=== PATIENT | female | born 1965 | race Caucasian/White ===

== ENCOUNTER 2023-02-17 09:02 | Outpatient (OUT) | payer OTHER, SELFPAY ==
[2023-02-17 10:13] LABS: Basophils Percent Auto 0.3 % (0.2-2.0); Eosinophils Absolute Auto 0.1 10^3/uL (0.0-0.7); Hematocrit 41.1 % (36.0-48.0); Hemoglobin 13.8 g/dL (12.0-16.0); Immature Granulocytes Abs Auto 0.02 10^3/uL (0.00-0.03); Immature Granulocytes Pct Auto 0.3 % (0.0-0.5); Lymphocytes Absolute Auto 1.6 10^3/uL (1.2-3.8); Lymphocytes Percent Auto 27.6 % (20.5-60.0); Mean Corpuscular HGB Conc 33.6 g/dL (29.9-35.2); Mean Corpuscular Hemoglobin 32.6 pg (26.7-34.0); Mean Corpuscular Volume 97.2 fL (81.0-99.0); Mean Platelet Volume 9.5 fL (9.5-13.5); Monocytes Absolute Auto 0.5 10^3/uL (0.3-0.8); Monocytes Percent Auto 8.4 % (1.7-12.0); Neutrophils Absolute Auto 3.6 10^3/uL (1.4-6.5); Neutrophils Percent Auto 61.4 % (43.0-75.0); Platelet Count 236 10^3/uL (150-450); Red Blood Count 4.23 10^6/uL (4.20-5.40); Red Cell Distribution Width 11.8 % (11.0-15.0); White Blood Count 5.9 10^3/uL (4.0-11.0)
[2023-02-17 12:05] LABS: Alanine Aminotransferase 28 U/L (14-59); Albumin Globulin Ratio 1.4; Albumin Level 4.3 g/dL (3.4-5.0); Alkaline Phosphatase 60 U/L (46-116); Anion Gap 11.5; Aspartate Amino Transferase 21 U/L (15-37); BUN Creatinine Ratio 32.4; Bilirubin Total 0.3 mg/dL (0.2-1.0); Calcium 9.3 mg/dL (8.5-10.1); Carbon Dioxide 30.2 mmol/L (21.0-32.0); Chloride 106 mmol/L (98-107); Chol HDL Ratio 3.1; Cholesterol 258 mg/dL (<=200); Estimated GFR (African America >60 (>=60); Estimated GFR (Non-African Ame >60 (>=60); Free T3 2.94 pg/mL (2.18-3.98); Glucose 114 mg/dL (74-106); HDL Cholesterol 84 mg/dL (40-60); Potassium 3.7 mmol/L (3.5-5.1); Sodium 144 mmol/L (136-145); Thyroid Stimulating Hormone 1.262 uIU/mL (0.358-3.740); Total Protein 7.3 g/dL (6.4-8.2); Triglycerides 87 mg/dL (<=150); VLDL CHOLESTEROL 17.4 mg/dL
[2023-02-17 13:45] LABS: Estimated Average Glucose 117 mg/dL; Glycohemoglobin A1C 5.7 % (4.5-6.2)
== END 2023-02-17 09:03 | disposition home or self-care (01) ==
LOC: LAB 09:05
PROVIDERS: PCP Family Medicine; Visit Provider Family Medicine
DX: Z00.00 Encounter for general adult medical examination without abnormal findings (principal)
CPT/HCPCS: 36415; 80053; 80061; 83036; 84436; 84443; 84481; 85025

== ENCOUNTER 2023-04-29 16:01 | Outpatient (OUT) | payer OTHER, SELFPAY ==
--- NOTE | 2023-04-29 16:05 | MM_ITS ---
Patient: STEPHON LOWE Exam Date: 04/29/2023 : 1965 Gender:F Ordering : DR Carlos Alberto lFood . Admission #: [id number] Family : Order #: [id number] CLICK HERE TO VIEW EXAM RADIOLOGY REPORT PROCEDURE: MM TOMOSYNTHESIS SCREENING BI COMPARISON: MG MAMM SCREEN 3D LUNA CAD, 03/11/2022. MG MAMM SCREEN LUNA W CAD, 03/21/2019. MG MAMM SCREEN LUNA W CAD, 03/01/2018. MG MAMM LUNA SCRN W CAD DIG, 05/16/2013. INDICATIONS: Z12.31 Calculator Name NCI Breast Cancer Risk Assessment Tool 5 Year Breast Cancer Risk 1.30% Lifetime Breast Cancer Risk 8.00% Personal Breast Cancer No Personal Ovarian Cancer No Treatments None Family Cancers Grandmother-paternal with breast cancer at age 60; Grandmother-maternal with bone cancer at age 65; Grandfather-paternal with lung cancer at age 55. LOCATION: [facility] BREAST COMPOSITION: Extremely dense, which lowers the sensitivity of mammography. FINDINGS: DIAGNOSTIC CATEGORY 2--BENIGN FINDING: RIGHT BREAST: No significant suspicious finding. No significant change has occurred. LEFT BREAST: No significant suspicious finding. Stable, chronic benign appearing lymph node within lateral lower-outer quadrant. No significant change has occurred. RECOMMENDATIONS: ROUTINE MAMMOGRAM AND CLINICAL EVALUATION IN 12 MONTHS. PLEASE NOTE: A NORMAL MAMMOGRAM DOES NOT EXCLUDE THE POSSIBILITY OF BREAST CANCER. A CLINICALLY SUSPICIOUS PALPABLE LUMP SHOULD BE BIOPSIED. Dictated by: Jameel Alfaro M.D. on 04/30/2023 at 12:01 Approved by: Jameel Alfaro M.D. on 04/30/2023 at 12:08
== END 2023-04-29 16:02 | disposition home or self-care (01) ==
LOC: MAMMO 16:02
PROVIDERS: PCP Family Medicine; Visit Provider Family Medicine
DX: Z12.31 Encounter for screening mammogram for malignant neoplasm of breast (principal); Z80.3 Family history of malignant neoplasm of breast; Z80.1 Family history of malignant neoplasm of trachea, bronchus and lung; Z80.8 Family history of malignant neoplasm of other organs or systems
CPT/HCPCS: 77063; 77067

== ENCOUNTER 2024-04-14 09:03 | Outpatient (OUT) | payer OTHER, SELFPAY ==
[2024-04-14 09:29] LABS: Basophils Percent Auto 0.3 % (0.2-2.0); Eosinophils Absolute Auto 0.2 10^3/uL (0.0-0.7); Eosinophils Percent Auto 3.1 % (0.9-7.0); Hematocrit 40.2 % (36.0-48.0); Hemoglobin 13.3 g/dL (12.0-16.0); Immature Granulocytes Abs Auto 0.01 10^3/uL (0.00-0.03); Immature Granulocytes Pct Auto 0.2 % (0.0-0.5); Lymphocytes Absolute Auto 2.2 10^3/uL (1.2-3.8); Lymphocytes Percent Auto 37.7 % (20.5-60.0); Mean Corpuscular HGB Conc 33.1 g/dL (29.9-35.2); Mean Corpuscular Hemoglobin 32.4 pg (26.7-34.0); Mean Platelet Volume 9.2 fL (9.5-13.5); Monocytes Absolute Auto 0.5 10^3/uL (0.3-0.8); Monocytes Percent Auto 7.8 % (1.7-12.0); Neutrophils Absolute Auto 2.9 10^3/uL (1.4-6.5); Neutrophils Percent Auto 50.9 % (43.0-75.0); Platelet Count 208 10^3/uL (150-450); Red Cell Distribution Width 11.9 % (11.0-15.0); White Blood Count 5.8 10^3/uL (4.0-11.0)
[2024-04-14 09:36] LABS: Estimated Average Glucose 114 mg/dL; Glycohemoglobin A1C 5.6 % (4.5-6.2)
[2024-04-14 10:39] LABS: Alanine Aminotransferase 22 U/L (14-59); Albumin Globulin Ratio 1.6; Albumin Level 4.1 g/dL (3.4-5.0); Alkaline Phosphatase 58 U/L (46-116); Anion Gap 12.2; Aspartate Amino Transferase 16 U/L (15-37); BUN Creatinine Ratio 30.7; Bilirubin Total 0.4 mg/dL (0.2-1.0); Calcium 9.1 mg/dL (8.5-10.1); Carbon Dioxide 30.8 mmol/L (21.0-32.0); Chloride 105 mmol/L (98-107); Chol HDL Ratio 3.2; Cholesterol 278 mg/dL (<=200); Estimated GFR (African America >60 (>=60); Estimated GFR (Non-African Ame >60 (>=60); Free T3 2.87 pg/mL (2.18-3.98); Globulin 2.6 g/dL; Glucose 102 mg/dL (74-106); HDL Cholesterol 88 mg/dL (40-60); Sodium 144 mmol/L (136-145); Thyroid Stimulating Hormone 1.503 uIU/mL (0.358-3.740); Total Protein 6.7 g/dL (6.4-8.2); Triglycerides 61 mg/dL (<=150); VLDL CHOLESTEROL 12.2 mg/dL
[2024-04-15 04:10] LABS: Insulin 4.4 uIU/mL (2.6-24.9)
[2024-04-18 14:10] LABS: Age Gdln ACOG Testing Note (.); HPV Aptima Negative (Negative); IGP, Aptima HPV, rfx 16/18,45 Note (.)
== END 2024-04-14 09:04 | disposition home or self-care (01) ==
LOC: LAB 09:11
PROVIDERS: PCP Family Medicine; Visit Provider Nurse Practitioner Family
DX: Z00.00 Encounter for general adult medical examination without abnormal findings (principal)
CPT/HCPCS: 36415; 80053; 80061; 83036; 83525; 84436; 84443; 84481; 85025; 87624; 88175

== ENCOUNTER 2024-05-20 16:24 | Emergency (ER) | payer OTHER, SELFPAY ==
[2024-05-20 16:31] VITALS: BP 161/106; PULSE 95; TEMP 36.7; O2SAT 98; BMI 22.1
--- NOTE | 2024-05-20 16:42 | ED_ITS ---
HPI - Skin/Abscess/Foreign Bdy General Chief complaint: Skin/Abscess/Foreign Body Stated complaint: bee sting in mouth, throat/swallowing diff Time Seen by Provider: 05/20/24 16:39 Source: patient Mode of arrival: walk-in Limitations: no limitations History of Present Illness HPI narrative: Patient is a 59-year-old female who presents to the emergency department for evaluation of discomfort in the throat after a suspected accidental swallowing of a bead that was indican she was drinking from. She states she believes she was stung in the throat. She has no history of bee sting allergy. She states she noted multiple bees around the area. She denies any diffuse hives or itching. She reports a raspy feeling in her voice and discomfort in the back of the throat. No medications taken prior to arrival. No lip swelling or tongue swelling. Related Data Home Medications ?Medication ?Instructions ?Recorded ?Confirmed simvastatin 20 mg tablet 20 mg PO DAILY 05/20/24 05/20/24 Previous Rx's ?Medication ?Instructions ?Recorded famotidine 20 mg tablet (Pepcid) 20 mg PO BID #10 tabs 05/20/24 hydroxyzine HCl 25 mg tablet 25 mg PO Q6H PRN itching #20 tabs 05/20/24 methylprednisolone 4 mg tablets in See Rx Instructions .Route 05/20/24 a dose pack (Medrol (Sam)) .COMPLEX #21 ea Allergies Allergy/AdvReac Type Severity Reaction Status Date / Time No Known Drug Allergies Allergy Verified 05/20/24 16:35 Review of Systems ROS Constitutional Denies: fever or chills Ears, nose, mouth, and throat Reports: throat pain; Denies: swelling of li ps/tongue Respiratory Denies: shortness of breath Gastrointestinal Denies: nausea or vomiting Integumentary/Breast Denies: rash Neurological Denies: numbness in extremities or weakness in extremities Allergic/Immunologic Reports: throat swelling; Denies: hives, tongue swelling or facial swelling [facility] Medical History (Updated 05/20/24 @ 19:12 by Leonila Singer RN) High cholesterol ?E78.00 - Pure hypercholesterolemia, unspecified (ICD-10) Social History Little interest or pleasure in doing things: not at all Feeling down, depressed, or hopeless: not at all Exam Narrative Exam Narrative: Gen.: Awake, alert, in no distress Head: Normocephalic, atraumatic ENT: Moist mucous membranes, airway widely open and patent with hoarse voice. No tongue swelling or lip swelling noted. Respiratory: No respiratory distress, lungs clear bilaterally; no wheezing or rhonchi Extremities: Moves extremities equally Psych: Normal mood and affect Neuro: No focal neuro deficit Skin: Warm, dry, intact Constitutional Vital Signs, click to edit/add: Last Vital Signs Temp 98.1 F 05/20/24 16:31 Pulse 95 H 05/20/24 17:46 Resp 18 05/20/24 17:46 BP 150/80 H 05/20/24 17:46 Pulse Ox 99 05/20/24 17:46 O2 Del Method Room Air 05/20/24 17:24 Course Vital Signs Vital signs: Vital Signs Temperature 98.1 F 05/20/24 16:31 Pulse Rate 95 H 05/20/24 16:31 Respiratory Rate 20 05/20/24 16:31 Blood Pressure 161/106 H 05/20/24 16:31 Pulse Oximetry 98 05/20/24 16:31 Oxygen Delivery Method Room Air 05/20/24 16:31 Temperature 98.1 F 05/20/24 16:31 Pulse Rate 95 H 05/20/24 17:46 Respiratory Rate 18 05/20/24 17:46 Blood Pressure 150/80 H 05/20/24 17:46 Pulse Oximetry 99 05/20/24 17:46 Oxygen Delivery Method Room Air 05/20/24 17:24 MDM - Skin/Abscess/Foreign Bdy MDM Narrative Medical decision making narrative: Patient was treated with IV fluids, albuterol breathing treatment, Solu-Medrol, Benadryl, Pepcid. She had no development of difficulty breathing, lip swelling, tongue swelling or diffuse urticaria. No evidence of anaphylaxis in the ER. She continues to have a hoarse and raspy voice and she was given additional GI cocktail. After the GI cocktail, she vomited but did not feel nauseous and states she felt like the bee was coming up . She was sent for CT of the soft tissue of the throat to rule out obstruction or obvious foreign body. CT shows soft tissue edema throughout the airway, given the patient's symptoms and her continued hoarse and raspy voice, we are concerned for possible development of worsening swelling overnight so it was recommended to the patient that we keep her in the hospital overnight for IV antibiotics and anti- histamines. Patient admitted to the hospitalist for observation. Stable at time of admission. SHARED APC VISIT, PHYSICIAN ATTESTATION: [id number] I performed a substantive part of the MDM during the patient?s E/M visit. I personally evaluated and examined the patient. I personally made or approved the documented management plan and acknowledge its risk of complications. 1926: At time of admission, patient has decided that she does not wish to be admitted. She understands the risks of and disability by leaving the hospital AGAINST MEDICAL ADVICE. She will be started on prescription steroids and antihistamines for home. She was strongly encouraged to return to the emergency department immediately if her symptoms change or worsen. Follow-up closely with PCP. Medical Records Attestation: I reviewed the patient's medical records. Imaging Data CT soft tissue neck: Attestation: I have reviewed the pertinent imaging results. Radiologist's impression: ITS Impressions Soft Tissue Neck CT 05/20/24 18:15 IMPRESSION: 1. There is soft tissue swelling and edema throughout the airway. There is mucosal edema along the oropharynx and hypopharynx. There is some edema throughout the parapharyngeal space and retropharyngeal space. 2. There is no significant airway compromise at this time. 3. There is no significant swelling of the epiglottis. Vocal cords are symmetric. 4. No loculated fluid collection appreciated. No evidence of an abscess. No soft tissue gas. Electronically authenticated by: ANSHU GOMES Date: 05/20/2024 18:55 Discharge Plan Discharge Chief Complaint: Skin/Abscess/Foreign Body Clinical Impression: Insect sting, Throat swelling Time of Disposition Decision: 19:01 Condition: Good Prescriptions / Home Meds: New hydroxyzine HCl 25 mg tablet 25 mg PO Q6H PRN (Reason: itching) Qty: 20 0RF methylprednisolone [Medrol (Sam)] 4 mg tablets,dose pack See Rx Instructions .ROUTE .COMPLEX Qty: 21 0RF Rx Instructions: Taper as directed famotidine [Pepcid] 20 mg tablet 20 mg PO BID Qty: 10 0RF No Action simvastatin 20 mg tablet 20 mg PO DAILY Print Language: Fijian Instructions: Insect Bite or Sting (ED) Referrals: Carlos Alberto Flood MD [Primary Care Provider] - 1 week
[2024-05-20] MEDS: FAMOTIDINE/PF 20 MG/2 ML VIAL IV (17:05)
[2024-05-20] MEDS: DIPHENHYDRAMINE HCL 50 MG/ML VIAL 25 MG IV (17:05)
[2024-05-20] MEDS: METHYLPREDNISOLONE SOD SUCC PF 125 MG/2 ML VIAL IVP (17:05)
[2024-05-20] MEDS: 0.9 % SODIUM CHLORIDE 1,000 ML 999 ML IV (17:06)
--- NOTE | 2024-05-20 17:20 | PC.NURSE ---
pt took a drink and swallowed bee by accident. pt unsure if bee stung pt throat. pt sounds raspy, feels like lump is in throat. pt denies SOB.
[2024-05-20 17:24] VITALS: PULSE 88; O2SAT 100
[2024-05-20] MEDS: ALBUTEROL SULFATE 2.5 MG/3 ML VIAL NEB IH (17:24)
[2024-05-20 17:46] VITALS: BP 150/80; PULSE 95; O2SAT 99
[2024-05-20] MEDS: lidocaine HCL 15 ML, MAG HYDROX/ALUMINUM HYD/SIMETH 30 ML, HYOSCYAMINE SULFATE 0.25 MG PO (18:04)
--- NOTE | 2024-05-20 18:15 | CT_ITS ---
The [address] [address] Patient Name: STEPHON LOWE MRN: [id number] date: 1965 Sex: F Assigned Patient Location: ER Current Patient Location: Accession/Order Number: [id number] Exam Date: 05/20/2024 18:20 Report Date: 05/20/2024 18:55 At the request of: PRINCE REYNAGA Procedure: CT soft tissue neck wo con CT NECK WITHOUT CONTRAST, 05/20/2024. HISTORY: Throat pain. Swallowed a bee. COMPARISON: None. TECHNIQUE: Noncontrast axial CT images obtained through the neck. Reconstructions obtained in the sagittal and coronal planes. Dose reduction techniques were achieved by using automated exposure control and/or adjustment of mA and/or kV according to patient size and/or use of iterative reconstruction technique. FINDINGS: Visualized posterior fossa contents are unremarkable. Paranasal sinuses appear clear. Middle ear cavities clear. Mastoid air cells clear. Skull base intact. [employer] spaces appear normal. The parotid glands are normal. Submandibular glands normal. The tongue and floor of the mouth are normal. The nasopharynx is normal. There is edema along the oropharynx most prominent on the right side. There is some edema in the parapharyngeal space on the right. There is mucosal edema along the hypopharynx extending into the supraglottic laryngeal region with effacement of the piriform sinuses bilaterally. There is edema in the retropharyngeal space. There is no significant swelling of the epiglottis. No significant airway compromise at this time. Vocal cords are symmetric. There is some edema extending into the soft tissues along the right lobe of the thyroid gland. Trachea appears normal. Visualized portion of the esophagus unremarkable. No lymphadenopathy. No fluid collections. Lung apices are clear. Moderate multilevel degenerative disc disease most prominent at C4-C5 and C5-C6. No suspicious osseous lesions. CT/CT soft tissue neck wo con IMPRESSION: 1. There is soft tissue swelling and edema throughout the airway. There is mucosal edema along the oropharynx and hypopharynx. There is some edema throughout the parapharyngeal space and retropharyngeal space. 2. There is no significant airway compromise at this time. 3. There is no significant swelling of the epiglottis. Vocal cords are symmetric. 4. No loculated fluid collection appreciated. No evidence of an abscess. No soft tissue gas. Electronically authenticated by: ANSHU GOMES Date: 05/20/2024 18:55
== END 2024-05-20 19:37 | disposition left against medical advice (07) ==
PROVIDERS: Emergency Provider Emergency Medicine; PCP Family Medicine
DX: T63.441A Toxic effect of venom of bees, accidental (unintentional), initial encounter (principal); R22.0 Localized swelling, mass and lump, head
CPT/HCPCS: 70490; 94640; 96374; 96375; 99285; J1200; J2919

== ENCOUNTER 2025-04-27 06:35 | Outpatient (OUT) | payer OTHER, SELFPAY ==
--- OUTSIDE RECORDS SUMMARY | 2025-03-22 06:30 | XMS_ITS | Continuity of Care Document ---
Author Organization [facility] Address [address] [place] [address] Phone Care Team Providers Care Differential Specialist Name Role Phone JED Dutton Riddhi Unavailable Unavailable Allergies, Adverse Reactions, Alerts Substance Reaction Status Criticality erythromycin base Active No Informa tion Medications Medication Instructions Dosage Effective Dates (start - stop) Status Comments TIZANIDINE HCL 4 MG TABLET TAKE 1 TABLET BY MOUTH EVERY NIGHT NEEDED - Active PREGABALIN 100 MG CAPSULE TAKE 1 CAPSULE BY MOUTH TWICE A DAY - Active metoprolol succinate ER 25 mg tablet,extended release 24 hr take 2 tablet by oral route every day 50 MG - Active tramadol 50 mg tablet TAKE 1 TABLET BY MOUTH EVERY 8 HOURS NEEDED - Active Prolia 60 mg/mL subcutaneous syringe PROLIA 60mg -Today - Active prednisone 5 mg tablet 1-2 tabs daily as needed, as directed - Active Vitamin D3 2,000 unit capsule take 2 tablet by oral route every day 2 tablet - Active Bioflex 500 mg-50 mg-25 mg-40 mg tablet - Active Pristiq 50 mg tablet,extended release take 1 tablet by oral route every day 50 MG - Active Ambien 5 mg tablet take 1 tablet by ora l route every day at bedtime 5 MG - Active Procedures Procedure Date OFFICE/OUTPATIENT VISIT, EST DEXA BONE DENSITY Patient Not Seen Patient Not Seen OFFICE/OUTPATIENT VISIT, EST Toradol (15mg = 1 Unit) KENALOG 10MG IM OFFICE/OUTPATIENT VISIT, EST COMPREHEN METABOLIC PANEL CBC W/DIFF WBC RBC SED RATE, AUTOMATED CRP NUCLEAR ANTIGEN ANTIBODY CCP ANTIBODY ASSAY OF URINE CREATININE ASSAY OF PROTEIN, URINE URINALYSIS W/ MICRO MAGGIE SCREEN Drug Administration Fee, SQ/IM 25 Prolia (1mg = 1 Unit) Arthrocentesis; Major Joint Or Bursa Wit h U/S KENALOG 10MG IM Arthrocentesis; Major Joint Or Bursa Wit h U/S OFFICE/OUTPATIENT VISIT, EST DRUG TEST PRSMV CHEM ANLYZR Toradol (15mg = 1 Unit) Drug Administration Fee, SQ/IM 24 Prolia (1mg = 1 Unit) OFFICE/OUTPATIENT VISIT, EST COMPREHEN METABOLIC PANEL CBC W/DIFF WBC VITAMIN D 250H KENALOG 10MG IM Toradol (15mg = 1 Unit) OFFICE/OUTPATIENT VISIT, EST Drug Administration Fee, SQ/IM 24 Prolia (1mg = 1 Unit) KENALOG 10MG IM Toradol (15mg = 1 Unit) OFFICE/OUTPATIENT VISIT, EST COMPREHEN METABOLIC PANEL DRUG TEST PRSMV CHEM ANLYZR CBC W/DIFF WBC PHOSPHORUS OFFICE/OUTPATIENT VISIT, EST Drug Administration Fee, SQ/IM Prolia (1mg = 1 Unit) OFFICE/OUTPATIENT VISIT, EST Administration Injections Toradol (15mg = 1 Unit) KENALOG 10MG IM OFFICE/OUTPATIENT VISIT, EST DEXA BONE DENSITY ROUTINE VENIPUNCTURE COMPREHEN METABOLIC PANEL MAGNESIUM URIC ACID PHOSPHORUS CRP FERRITIN FOLIC ACID SERUM IRON FE IRON TIBC VITAMIN B-12 VITAMIN D 250H URINALYSIS W/ MICRO GENERAL HEALTH PANEL OFFICE/OUTPATIENT VISIT, EST X-RAY EXAM OF SPINE LUMBAR AP & LAT X-RAY EXAM OF SPINE CERVICAL, AP & LAT J OFFICE/OUTPATIENT VISIT, EST KENALOG 10MG IM Toradol (15mg = 1 Unit) OFFICE/OUTPATIENT VISIT, EST Arthrocentesis; Major Joint Or Bursa Wit h U/S KENALOG 10MG IM Toradol (15mg = 1 Unit) Arthrocentesis; Major Joint Or Bursa Wit h U/S OFFICE/OUTPATIENT VISIT, EST X-RAY EXAM OF KNEE AP & LAT KENALOG 10MG IM Toradol (15mg = 1 Unit) OFFICE/OUTPATIENT VISIT, EST OFFICE/OUTPATIENT VISIT, EST KENALOG 10MG IM Toradol (15mg = 1 Unit) CBC W/DIFF WBC RBC SED RATE, AUTOMATED CRP COMPREHEN METABOLIC PANEL ROUTINE VENIPUNCTURE Administration Injections KENALOG 10MG IM OFFICE/OUTPATIENT VISIT, EST KENALOG 10MG IM Toradol (15mg = 1 Unit) OFFICE/OUTPATIENT VISIT, EST Hip With Pelvis Unilateral 2 Or 3 Views X-RAY EXAM OF SPINE LUMBAR AP & LAT ROUTINE VENIPUNCTURE CBC W/DIFF WBC COMPREHEN METABOLIC PANEL CRP RBC SED RATE, AUTOMATED Toradol (15mg = 1 Unit) OFFICE/OUTPATIENT VISIT, EST Toradol (15mg = 1 Unit) KENALOG 10MG IM OFFICE/OUTPATIENT VISIT, EST ROUTINE VENIPUNCTURE COMPREHEN METABOLIC PANEL CBC W/DIFF WBC OFFICE/OUTPATIENT VISIT, EST OFFICE/OUTPATIENT VISIT, EST OFFICE/OUTPATIENT VISIT, EST ROUTINE VENIPUNCTURE COMPREHEN METABOLIC PANEL CBC W/DIFF WBC KENALOG 10MG IM OFFICE/OUTPATIENT VISIT, EST OFFICE/OUTPATIENT VISIT, EST OFFICE/OUTPATIENT VISIT, EST OFFICE/OUTPATIENT VISIT, EST Chest, PA And Lateral ROUTINE VENIPUNCTURE CBC W/DIFF WBC RBC SED RATE, AUTOMATED CRP COMPREHEN METABOLIC PANEL TB TEST, CELL IMMUN MEASURE HEP B SURFACE ANTIBODY HBS AG HEPATITIS C ANTIBODY HEP B CORE ANTIBODY, TOTAL IMMUNOFIX E-PHORESIS, SERUM KENALOG 10MG IM OFFICE/OUTPATIENT VISIT, EST OFFICE/OUTPATIENT VISIT, EST OFFICE/OUTPATIENT VISIT, EST ROUTINE VENIPUNCTURE CBC W/DIFF WBC COMPREHEN METABOLIC PANEL VITAMIN D 250H KENALOG 10MG IM Administration Injections KENALOG 10MG IM OFFICE/OUTPATIENT VISIT, EST OFFICE/OUTPATIENT VISIT, EST OFFICE/OUTPATIENT VISIT, EST KENALOG 10MG IM ROUTINE VENIPUNCTURE CBC W/DIFF WBC RBC SED RATE, AUTOMATED CRP COMPREHEN METABOLIC PANEL QUANTITATIVE IMMUNOGLOBULIN IGM 018 CORTISOL BLOOD LEVEL IGG 1, 2, 3 OR 4, EACH OFFICE/OUTPATIENT VISIT, EST GENERAL HEALTH PANEL RBC SED RATE, AUTOMATED CRP T4 FREE VITAMIN D 250H OFFICE/OUTPATIENT VISIT, EST OFFICE/OUTPATIENT VISIT, EST ROUTINE VENIPUNCTURE CORTISOL BLOOD LEVEL OFFICE/OUTPATIENT VISIT, EST KENALOG (10mg/unit) CBC W/DIFF WBC RBC SED RATE, AUTOMATED CRP COMPREHEN METABOLIC PANEL TSH PHOSPHORUS VITAMIN D 250H EBV EA IGG ANGELI ROJAS VIRUS EBV VCA IGM CMV ANTIBODY, IGG SERUM CMV ANTIBODY, IGM OFFICE/OUTPATIENT VISIT, EST X-RAY EXAM OF KNEE AP & LAT X-RAY EXAM OF SPINE LUMBAR AP & LAT Administration Injections KENALOG (10mg/unit) OFFICE/OUTPATIENT VISIT, NEW GENERAL HEALTH PANEL RBC SED RATE, AUTOMATED CRP MAGGIE SCREEN RF LATEX QUALITATIVE NUCLEAR ANTIGEN ANTIBODY MAGGIE TITER Advance Directives Directive Yes / No Effective Date File Name No Information Encounters Encounter Description Practice Location Reason(s) For Visit Diagnoses Date Provider Providers Copied on Encounter OFFICE/OUTPA TIENT VISIT, EST [facility], [address] [place] [address], [id number], tel:[phone] [facility] musculoskeleta l complaints (chief complaint) Inflammatory polyarthropat hyPain in unspecified hipFibromyalg iaAge-related osteoporosis without current pathological fractureOther nursing home (current) drug therapy 5 JED Dutton. [address] [place] [address], [facility], . tel:[phone] Referring Provider: Aaron Dutton, [address] [place] [address], [place], [address] . tel:[phone] [facility], [address] [place] [address], [id number], [place] tel:[phone] [facility] No Information 5 Marielos Walker. [address] [place] [address], [id number], [place]. tel:[phone] [facility], [address] [place] [address], [id number], [place] tel:[phone] [facility] No Information 5 Santos Parada. [address] [place] [address], [id number], [place]. tel:[phone] [facility], [address] [place] [address], [id number], [place] tel:[phone] [facility] No Information 5 JED Dutton. [address] [place] [address], [facility], . tel:[phone] OFFICE/OUTPA TIENT VISIT, EST [facility], [address] [place] [address], [address] [place] [address], tel:[phone] [facility] musculoskeleta l complaints (chief complaint) Inflammatory polyarthropat hyPain in unspecified hipFibromyalg iaAge-related osteoporosis without current pathological fractureOther nursing home (current) drug therapy 5 JED Duttoni. [address] [place] [address], [facility], . tel:[phone] Referring Provider: Aaron Dutton, [address] [place] [address], [id number] . tel:[phone] [facility], [address] [place] [address], [address] [place] [address], tel:[phone] [facility] No Information 5 JED Dutton. [address] [place] [address], [facility], . [phone] OFFICE/OUTPA TIENT VISIT, EST [facility], [address] [place] [address], [address] [place] [address], tel:[phone] [facility] musculoskeleta l complaints (chief complaint) Inflammatory polyarthropat hyPain in unspecified hipFibromyalg iaAge-related osteoporosis without current pathological fractureOther intermodal dispatcher (current) drug therapy 5 JED Dutton. [address] [place] [address], [facility], . tel:[phone] Referring Provider: Aaron Dutton, [address] [place] [address], [address] . tel:[phone] [facility], [address] [place] [address], [address] [place] [address], [place] tel:[phone] [facility] No Information 5 Marielos Walker. [address] [place] [address], [address] [place] [address], [place]. tel:[phone] [facility], [address] [place] [address], [address] [place] [address], [place] tel:[phone] [facility] Age-related osteoporosis without current pathological fracture 5 Marielos Walker. [address] [place] [address], [address] [place] [address], [place]. tel:[phone] Referring Provider: Aaron Dutton, [address] [place] [address], [place], [place], [address] [place] [address] . tel:[phone] OFFICE/OUTPA TIENT VISIT, EST [facility], [address] [place] [address], [address] [place] [address], tel:[phone] [facility] musculoskeleta l complaints (chief complaint) Inflammatory polyarthropat hyFibromyalgi aAge-related osteoporosis without current pathological fractureOther intermodal dispatcher (current) drug therapyPain in unspecified hip 5 Marielos Walker. [address] [place] [address], [address] [place] [address], [place]. tel:[phone] Referring Provider: Aaron Dutton, [address] [place] [address], [place], [address] . tel:[phone] [facility], [address] [place] [address], [address] [place] [address], [place] tel:[phone] [facility] No Information 4 Gabriel Fernandez. [address] [place] [address], [facility], . tel:[phone] OFFICE/OUTPA TIENT VISIT, EST [facility], [address] [place] [address], [address] [place] [address], [place] tel:[phone] [facility] musculoskeleta l complaints (chief complaint) Inflammatory polyarthropat hyFibromyalgi aAge-related osteoporosis without current pathological fractureOther nursing home (current) drug therapy 4 Marielos Walker. [address] [place] [address], [address] [place] [address], [place]. tel:[phone] Referring Provider: Aaron Dutton, [address] [place] [address], [place], [place], [address] [place] [address] . tel:[phone] [facility], [address] [place] [address], [address] [place] [address], tel:[phone] [facility] FibromyalgiaI nflammatory polyarthropat hy 4 Marielos Walker. [address] [place] [address], [address] [place] [address], [place]. tel:[phone] Referring Provider: Aaron Dutton, [address] [place] [address], [place], [place], [address] [place] [address] . tel:[phone] OFFICE/OUTPA TIENT VISIT, EST [facility], [address] [place] [address], [address] [place] [address], [place] tel:[phone] [facility] musculoskeleta l complaints (chief complaint) Inflammatory polyarthropat hyFibromyalgi aAge-related osteoporosis without current pathological fractureOther nursing home (current) drug therapy 4 Marielos Walker. [address] [place] [address], [address] [place] [address], [place]. tel:[phone] Referring Provider: Aaron Dutton, [address] [place] [address], [place], [place], [address] [place] [address] . tel:[phone] [facility], [address] [place] [address], [address] [place] [address], [place] tel:[phone] [facility] Age-related osteoporosis without current pathological fracture 4 Marielos Walker. [address] [place] [address], [address] [place] [address], . tel:[phone] Referring Provider: Aaron Dutton, [address] [place], [address] . tel:[phone] [facility], [address] [place] [address], [address] [place] [address], tel:[phone] [facility] Inflammatory polyarthropat hy 4 Marielos Walker. [address] [place] [address], [address] [place] [address], [place]. tel:[phone] Referring Provider: Aaron Dutton, [address] [place] [address], [place], [address] [place] [address] . tel:[phone] OFFICE/OUTPA TIENT VISIT, EST [facility], [address] [place] [address], [address] [place] [address], tel:[phone] [facility] musculoskeleta l complaints (chief complaint) Inflammatory polyarthropat hyFibromyalgi aAge-related osteoporosis without current pathological fractureOther nursing home (current) drug therapy 4 Marielos Walker. [address] [place] [address], [address] [place] [address], [place]. tel:[phone] Referring Provider: Aaron Dutton, [address] [place] [address], [place], [place], [address] [place] [address] . tel:[phone] OFFICE/OUTPA TIENT VISIT, EST [facility], [address] [place] [address], [address] [place] [address], [place] tel:[phone] [facility] Musculoskeleta l complaints (chief complaint) Inflammatory polyarthropat hyFibromyalgi aAge-related osteoporosis without current pathological fractureOther nursing home (current) drug therapy 3 Marielos Walker. [address] [place] [address], [address] [place] [address], [place]. tel:[phone] Referring Provider: Aaron Dutton, [address] [place] [address], [place], [address] . tel:[phone] [facility], [address] [place] [address], [id number], [place] tel:[phone] [facility] Age-related osteoporosis without current pathological fracture 3 Marielos Walker. [address] [place] [address], [address] [place] [address], . tel:[phone] Referring Provider: Aaron Dutton, [address] [place] [address], [address] . tel:[phone] OFFICE/OUTPA TIENT VISIT, EST [facility], [address] [place] [address], [address] [place] [address], [place] tel:[phone] [facility] Musculoskeleta l complaints (chief complaint) OsteoporosisC ervicalgiaFib romyalgia 3 Marielos Walker. [address] [place] [address], [address] [place] [address], . tel:[phone] Referring Provider: Aaron Dutton, [address] [place] [address], [place], [address] . tel:[phone] [facility], [address] [place] [address], [id number], [place] tel:[phone] [facility] Inflammatory polyarthropat hy 3 Marielos Walker. [address] [place] [address], [address] [place] [address], [place]. tel:[phone] Referring Provider: Carol Villalobos, [address] [address], [place], [address]. tel:[phone] OFFICE/OUTPA TIENT VISIT, EST [facility], [address] [place] [address], [id number], [place] tel:[phone] [facility] musculoskeleta l complaints (chief complaint) Vitamin D deficiency, unspecifiedIn flammatory polyarthropat hyRadiculopat hy, lumbar regionCervica lgiaFibromyal felisha 3 Marielos Walker. [address] [place] [address], [id number], [place]. tel:[phone] Referring Provider: Carol Villalobos, [address], [place], [address]. tel:[phone] [facility], [address] [place] [address], [place], [place], [id number], [place] tel:[phone] [facility] Radiculopathy , cervical region 3 Marielos Walker. [address] [place] [address], [place], [place], [id number], [place]. tel:[phone] OFFICE/OUTPA TIENT VISIT, EST [facility], [address] [place] [address], [id number], [place] tel:[phone] [facility] musculoskeleta l complaints (chief complaint) Vitamin D deficiency, unspecifiedIn flammatory polyarthropat hyFibromyalgi aCervicalgiaR adiculopathy, lumbar region 3 JED Dutton. [address] [place] [address], [id number], [place]. tel:[phone] Referring Provider: Aaron Dutton, [address] [place] [address], [place], [address] . tel:[phone] OFFICE/OUTPA TIENT VISIT, EST [facility], [address] [place] [address], [id number], [place] tel:[phone] [facility] musculoskeleta l complaints (chief complaint) Vitamin D deficiency, unspecifiedIn flammatory polyarthropat hyFibromyalgi a Oct- 3 JED Dutton. [address] [place] [address], [address], [place]. tel:[phone] Referring Provider: Aaron Dutton, [address] [place] [address], [address] . tel:[phone] OFFICE/OUTPA TIENT VISIT, EST [facility], [address] [place] [address], [id number], [place] tel:[phone] [facility] musculoskeleta l complaints (chief complaint) Vitamin D deficiency, unspecifiedIn flammatory polyarthropat hyPain in left hipPain in rt kneeFibromyal felisha 3 Marielos Walker. [address], [place], [id number], [place]. tel:[phone] Referring Provider: Carol Villalobos, [facility] [address], [place], [address]. tel:[phone] OFFICE/OUTPA TIENT VISIT, EST [facility], [address] [place] [address], [id number], [place] tel:[phone] [facility] musculoskeleta l complaints (chief complaint) Vitamin D deficiency, unspecifiedIn flammatory polyarthropat hyFibromyalgi aPain in rt kneePain in left hip 2 Marielos Walker. [address], [place], [id number], [place]. tel:[phone] Referring Provider: Carol Villalobos, [facility] [address], [place], [address]. tel:[phone] OFFICE/OUTPA TIENT VISIT, EST [facility], [address] [place] [address], [id number], [place] tel:[phone] [facility] musculoskeleta l complaints (chief complaint) FibromyalgiaI nflammatory polyarthropat hyVitamin D deficiency, unspecified 2 Marielos Walker. [address], [place], [id number], [place]. tel:[phone] Referring Provider: Carol Villalobos, [facility] [address], [place], [address]. tel:[phone] OFFICE/OUTPA TIENT VISIT, EST [facility], [address] [place] [address], [id number], [place] tel:[phone] [facility] musculoskeleta l complaints (chief complaint) Arthropathy, unspecifiedFi bromyalgia 2 JED Dutton. [address] [place] [address], [id number], [place]. tel:[phone] Referring Provider: Aaron Dutton, [address] [place] [address], [address] . tel:[phone] [facility], [address] [place] [address], [id number], [place] tel:[phone] [facility] Inflammatory polyarthropat hy 1 aMrielos Walker. [address] [place] [address], [id number], [place]. tel:[phone] Referring Provider: Carol Villalobos, [address] [place] [address], [place], [address]. tel:[phone] OFFICE/OUTPA TIENT VISIT, EST [facility], [address] [place] [address], [id number], [place] tel:[phone] [facility] musculoskeleta l complaints (chief complaint) Arthropathy, unspecifiedFi bromyalgia 1 Marielos Walker. [address] [place] [address], [id number], [place]. tel:[phone] Referring Provider: Carol Villalobos, [address] [place] [address], [place], [address]. tel:[phone] OFFICE/OUTPA TIENT VISIT, EST [facility], [address] [place] [address], [id number], [place] tel:[phone] [facility] musculoskeleta l complaints (chief complaint) Arthropathy, unspecifiedFi bromyalgia 0 1 Marielos Walker. [address] [place] [id number], [place]. tel:[phone] Referring Provider: Carol Villalobos, [address] [place] [address], [place], [address]. tel:[phone] OFFICE/OUTPA TIENT VISIT, EST [facility], [address] [place] [address], [id number], [place] tel:[phone] [facility] musculoskeleta l complaints (chief complaint) Inflammatory polyarthropat hyFibromyalgi a 0 Marielos Walker. [address], [place], [id number], [place]. tel:[phone] Referring Provider: Carol Villalobos, [facility], [place], [address]. tel:[phone] OFFICE/OUTPA TIENT VISIT, EST [facility], [address] [place] [address], [address] [place] [address], [place] tel:[phone] [facility] musculoskeleta l complaints (chief complaint) FibromyalgiaI nflammatory polyarthropat hy 0 Marielos Walker. [address], [place], [address] [place] [address], [place]. tel:[phone] Referring Provider: Carol Villalobos, [address], [place], [address]. tel:[phone] OFFICE/OUTPA TIENT VISIT, EST [facility], [address] [place] [address], [id number], [place] tel:[phone] [facility] Musculoskeleta l complaints (chief complaint) FibromyalgiaI nflammatory polyarthropat hy 0 Marielos Walker. [address], [place], [address] [place] [address], [place]. tel:[phone] OFFICE/OUTPA TIENT VISIT, EST [facility], [address] [place] [address], [id number], [place] tel:[phone] [facility] No Information 0 Marielos Walker. [address], [place], [id number], [place]. tel:[phone] OFFICE/OUTPA TIENT VISIT, EST [facility], [address] [place] [address], [id number], [place] tel:[phone] [facility] musculoskeleta l complaints (chief complaint) Inflammatory polyarthropat hyFibromyalgi aOther fatigueOther intermodal dispatcher (current) drug therapy 0 Marielos Walker. [address] [place] [address], [id number], [place]. tel:[phone] Referring Provider: Carol Villalobos, [address] [facility] [address], [place], [address]. tel:[phone] OFFICE/OUTPA TIENT VISIT, EST [facility], [address] [place] [address], [id number], [place] tel:[phone] [facility] musculoskeleta l complaints (chief complaint) Inflammatory polyarthropat hyFibromyalgi aOther fatigueOther nursing home (current) drug therapy 0 JED Dutton. [address] [place] [address], [facility], . tel:[phone] Referring Provider: Aaron Dutton, [address] [place] [address], [id number] . tel:[phone] [id number] OFFICE/OUTPA TIENT VISIT, EST [facility], [address] [place] [address], [id number], [place] tel:[phone] [facility] musculoskeleta l complaints (chief complaint) Inflammatory polyarthropat hyFibromyalgi aOther fatigueOther intermodal dispatcher (current) drug therapy 9 JED Dutton. [address] [place] [address], [facility], . tel:[phone] Referring Provider: Aaron Dutton, [address] [place] [address], [id number] . tel:[phone] OFFICE/OUTPA TIENT VISIT, EST [facility], [address] [place] [address], [id number], [place] tel:[phone] [facility] musculoskeleta l complaints (chief complaint) Inflammatory polyarthropat hyFibromyalgi aOther fatigueOther nursing home (current) drug therapy 9 Marielos Walker. [address] [facility], [place], [place], [id number], [place]. tel:[phone] Referring Provider: Carol Villalobos, [facility] [address], [place], [address]. tel:[phone] OFFICE/OUTPA TIENT VISIT, EST [facility], [address] [place], [place], [id number], [place] tel:[phone] [facility] musculoskeleta l complaints (chief complaint) FibromyalgiaI nflammatory polyarthropat hyOther fatigueOther nursing home (current) drug therapyOther giant cell arteritis 9 Marielos Walker. [address] [place], [place], [id number], [place]. tel:[phone] Referring Provider: Carol Villalobos, [facility] [address], [place], [address]. tel:[phone] OFFICE/OUTPA TIENT VISIT, EST [facility], [address] [place] [address], [id number], [place] tel:[phone] [facility] musculoskeleta l complaints (chief complaint) FibromyalgiaO ther nursing home (current) drug therapy 9 Marietta Kassi. [address] [place], [address], [place]. tel:[phone] Referring Provider: Aaron Dutton, [address] [facility], [place], [address] . tel:[phone] OFFICE/OUTPA TIENT VISIT, EST [facility], [address] [place] [address], [id number], [place] tel:[phone] [facility] musculoskeleta l complaints (chief complaint) FibromyalgiaO ther nursing home (current) drug therapy 9 Marielos Walker. [address] [place], [place], [id number], [place]. tel:[phone] Referring Provider: Carol Villalobos, [address] [address], [place], [address]. tel:[phone] OFFICE/OUTPA TIENT VISIT, EST [facility], [address] [place] [address], [id number], [place] tel:[phone] [facility] Follow Up of musculoskeleta l complaints (chief complaint) FibromyalgiaO ther intermodal dispatcher (current) drug therapy 9 Marietta Kassi. [address] [place], [address], [place]. tel:[phone] Referring Provider: Aaron Dutton, [address] [place] [address], [id number] . tel:[phone] [facility], [address] [place] [address], [id number], [place] tel:[phone] [facility] Inflammatory polyarthropat hy 8 Marielos Walker. [address] [place] [address], [id number], [place]. tel:[phone] Referring Provider: Carol Villalobos, [facility] [address], [place], [address]. tel:[phone] OFFICE/OUTPA TIENT VISIT, EST [facility], [address] [place] [address], [id number], [place] tel:[phone] [facility] musculoskeleta l complaints (chief complaint) FibromyalgiaO ther nursing home (current) drug therapy 8 Marielos Walker. [address] [place] [address], [id number], [place]. tel:[phone] Referring Provider: Carol Villalobos, [facility] [address], [place], [address]. tel:[phone] OFFICE/OUTPA TIENT VISIT, EST [facility], [address] [place] [address], [id number], [place] tel:[phone] [facility] musculoskeleta l complaints (chief complaint) FibromyalgiaV itamin D deficiency 8 Marielos Walker. [address] [place], [place], [id number], [place]. tel:[phone] Referring Provider: Carol Villalobos, [facility] [address], [place], [address]. tel:[phone] OFFICE/OUTPA TIENT VISIT, EST [facility], [address] [place] [address], [id number], [place] tel:[phone] [facility] musculoskeleta l complaints (chief complaint) FibromyalgiaA rthropathy 8 Marielos Walker. [address] [place], [place], [id number], [place]. tel:[phone] Referring Provider: Carol Villalobos, [address] [place] [address], [place], [address]. tel:[phone] [facility], [address] [place] [address], [id number], [place] tel:[phone] [facility] No Information 7 Casey Monica. [address] [place] [address], [id number], [place]. tel:[phone] OFFICE/OUTPA TIENT VISIT, EST [facility], [address] [place] [address], [id number], [place] tel:[phone] [facility] musculoskeleta l complaints (chief complaint) ArthropathyFa tigueVitamin D deficiency 7 Casey Monica. [address] [place] [address], [id number], [place]. tel:[phone] Referring Provider: Carol Villalobos, [facility] [address], [place], [address]. tel:[phone] OFFICE/OUTPA TIENT VISIT, EST [facility], [address] [place] [address], [id number], [place] tel:[phone] [facility] musculoskeleta l complaints (chief complaint) Arthropathy 7 Marielos Walker. [address] [place], [place], [id number], [place]. tel:[phone] Referring Provider: Carol Villalobos, [facility] [address], [place], [address]. tel:[phone] OFFICE/OUTPA TIENT VISIT, EST [facility], [address] [place] [address], [id number], [place] tel:[phone] [facility] musculoskeleta l complaints (chief complaint) Arthropathy 7 Marietta Kassi. [address] [place], [address], [place]. tel:[phone] Referring Provider: Carol Villalobos, [address] [place] [address], [address]. tel:[phone] [facility], [address] [place] [address], [id number], [place] tel:[phone] [facility] No Information Marielos Aaron. [address] [place] [address], [id number], [place]. tel:[phone] Referring Provider: Carol Villalobos, [address] [place] [address], [place], [address]. tel:[phone] OFFICE/OUTPA TIENT VISIT, EST [facility], [address] [place] [address], [id number], [place] tel:[phone] [facility] musculoskeleta l complaints (chief complaint) ArthropathyFa tigue 7 Laurasimran Walker. [address] [place], [place], [id number], [place]. tel:[phone] Referring Provider: Carol Villalobos, [address] [place] [address], [place], [address]. tel:[phone] OFFICE/OUTPA TIENT VISIT, EST [facility], [address] [place] [address], [id number], [place] tel:[phone] [facility] musculoskeleta l complaints (chief complaint) Inflammatory polyarthropat hy 6 Marielos Walker. [address] [facility], [place], [place], [id number], . tel:[phone] Referring Provider: Carol Villalobos, [facility] [address], [place], [address]. tel:[phone] OFFICE/OUTPA TIENT VISIT, NEW [facility], [address] [facility], [place], [place], [id number], tel:[phone] [facility] musculoskeleta l complaints (chief complaint) Inflammatory polyarthropat hyOther nursing home (current) drug therapy 6 Marielos Walker. [address] [facility], [place], [place], [id number], . tel:[phone] Referring Provider: Carol Villalobos, [facility] [address], [place], [address]. tel:[phone] Family History Family Member Type Diagnosis Age At Onset Mother Problem (finding) Eczema Father Problem (finding) Cancer, unknown Mother Problem (finding) hypertension Mother Problem (finding) Diabetes mellitus Immunizations Vaccine Date Status Comments COVID-19 vaccine, vector-nr, rS-Ad26, PF, 0.5 mL administered Source: Other Regist ry FLUZONE QUAD administered Sourc e: Other Provider influenza, injectable, quadr ivalent, preservative free administered Source: Other Regist ry influenza, recombinant, quadrivalent,injectable, preservative free administered Source: Other Regist ry Influenza, injectable, MDCK, preservative free Flucelvax administered So urce: Other Provider Influenza, seasonal, injectable administe red Source: Other Registry Tdap administered Source: Other R egistry Influenza, seasonal, injectable administe red Source: Other Registry Payers Payer name Insurance type Covered constitution party ID Authoriza tion(s) [facility] [facility] [id number] Social History Type Description Quantity Date Captured Comments Alcohol Use Details Unknown Caffeine Use Details Unknown Tobacco Use Status Current non-smoker Smoking Status Never smoker Non-Smoking Tobacco Use Details : No Details Available : No Details Available Sex Female Vital Signs Date / Time: Height Weight BMI Pulse Rate Blood Pressure Temperature Respiratory Rate Body Surface Area Head Circumference Head Circ. Percentile Wt./Bernardo. Percentile BMI percentile Pulse Ox Inhaled Ox 10:56 AM 78.199 kg (172.40 lbs) 59 /min 128/88 mm[Hg] 97.30 F 99 % Chief Complaint And Reason For Visit From encounter dated '03/22/2025 10:30'. musculoskeletal complaints (chief complaint). Description: Onset: March 2019. The severity of the problem is moderate. The symptoms are constant. The problem has not changed significantly. The following symptoms are not reported: pain. Pertinent negatives include fever, fatigue, AM stiffness, sicca complaints, chest pain and abdominal pain. Reason For Referral Reason For Referral No Information Plan Of Treatment Date Type Action Status Referral Ordered: Jm Coker -Allopathic & Osteopathic Physicians : Physical Medicine & Rehabilitation (related to Radiculopathy, cervical region) ordered Referral Referred To: Jm Cokre [address] [place] [address], [id number] Ordered: Referrals: Allopathic & Osteopathic Physicians : Physical Medicine & Rehabilitation. Jm Coker ordered Appointment Starr Nicholas BOOKED Appointment Starr Nicholas BOOKED Patient Education Fibromyalgia: After You r Visit completed Patient Education Fibromyalgia: After You r Visit completed Patient Education Fibromyalgia: After You r Visit completed Future Order: Radiology Order DX A Hip Spine ([id number]), Ordered on: Ordered Future Order: Radiology Order DX A Hip Spine ([id number]), Ordered on: Ordered Future Order: Radiology Order Sp ine, Lumbar, AP & Lat ([id number]), Ordered on: Ordered Future Order: Radiology Order Sp ine, Cervical. F&E, Apt Lat ([id number]), Ordered on: Ordered Future Order: Radiology Order Kn ee, AP & Lat ([id number]), Ordered on: Ordered Future Order: Radiology Order Hi p W/ Pelvis Unilateral ([id number]), Ordered on: Ordered Future Order: Radiology Order Sp ine, Lumbar, AP & Lat ([id number]), Ordered on: Ordered Future Order: Radiology Order Ch est, PA & Lateral ([id number]), Ordered on: Ordered History Of Present Illness Encounter Date Complaint History Of Prese nt Illness musculoskeletal complaints Onset : March 2019. The severity of the problem is moderate. The symptoms are constant. The problem has not changed significantly. The following symptoms are not reported: pain. Pertinent negatives include fever, fatigue, AM stiffness, sicca complaints, chest pain and abdominal pain. musculoskeletal complaints Onset : March 2019. The severity of the problem is moderate. The symptoms are constant. The problem has not changed significantly. musculoskeletal complaints Onset : March 2019. musculoskeletal complaints Onset : March 2019. The severity of the problem is moderate. The symptoms are recurring. The primary symptoms reported include: pain and stiffness. The patient assesses the interval disease activity as: variable. Associated symptoms include fatigue and AM stiffness. Pertinent negatives include fever, sicca complaints, chest pain and abdominal pain. musculoskeletal complaints Onset : March 2019. musculoskeletal complaints Onset : March 2019. The severity of the problem is moderate. The symptoms are intermittent. The primary symptoms reported include: pain and stiffness. The patient's assessment of treatment is: helping some. Associated symptoms include fatigue and AM stiffness. Pertinent negatives include fever, sicca complaints, chest pain and abdominal pain. musculoskeletal complaints Onset : March 2019. The severity of the problem is moderate. The symptoms are constant. The problem has worsened. The primary symptoms reported include: pain and stiffness. The following symptoms are not reported: swelling, functional limitation and progression of deformity. The patient assesses the interval disease activity as: worsening. The patient's assessment of treatment is: helping some. Associated symptoms include fatigue and AM stiffness. Pertinent negatives include fever, sicca complaints, chest pain, joint swelling and abdominal pain. Musculoskeletal complaints Onset : March 2019. The severity of the problem is moderate. The primary symptoms reported include: pain. The patient's assessment of treatment is: helping some. Pertinent negatives include fever and infection. Musculoskeletal complaints Onset : March 2019. Pertinent negatives include fever and infection. musculoskeletal complaints Onset : March 2019. Reference interval of symptoms: 2 Months. The severity of the problem is moderate. The symptoms are intermittent. The primary symptoms reported include: pain. The patient assesses the interval disease activity as: variable. The patient's assessment of treatment is: helping some. Associated symptoms include fatigue. Pertinent negatives include fever, AM stiffness, sicca complaints, chest pain and abdominal pain. musculoskeletal complaints Onset : March 2019. The severity of the problem is moderate. Pain scale: 3/10. The symptoms are constant. The problem is worsening. The primary symptoms reported include: pain and stiffness. The patient assesses the interval disease activity as: stable. The patient's assessment of treatment is: helping some. Associated symptoms include fatigue. Pertinent negatives include fever, AM stiffness, mouth sores/lesions, chest pain, joint swelling and abdominal pain. musculoskeletal complaints Onset : March 2019. The severity of the problem is moderate. Pain scale: 7/10. The symptoms are constant. The problem is worsening. The patient denies: pain. Associated symptoms include AM stiffness (2 hrs). Pertinent negatives include fever, fatigue, mouth sores/lesions, chest pain, joint swelling and abdominal pain. musculoskeletal complaints Onset : March 2019. The severity of the problem is moderate. Pain scale: 1/10. The symptoms are constant. The problem is worsening. The primary symptoms reported include: pain and stiffness. The patient assesses the interval disease activity as: stable. The patient's assessment of treatment is: helping some. The patient is not experiencing side effects. Associated symptoms include fatigue, AM stiffness (2 hrs) and joint swelling. Pertinent negatives include fever, mouth sores/lesions, chest pain and abdominal pain. musculoskeletal complaints Onset : March 2019. The severity of the problem is moderate. Pain scale: 3/10. The symptoms are constant. The problem is worsening. The primary symptoms reported include: pain and stiffness. The patient assesses the interval disease activity as: worse. The patient's assessment of treatment is: helping some. The patient is not experiencing side effects. Associated symptoms include fatigue, AM stiffness (2 hrs) and joint swelling. Pertinent negatives include fever, mouth sores/lesions, chest pain and abdominal pain. musculoskeletal complaints Onset : March 2019. Reference interval of symptoms: since last visit. The severity of the problem is moderate. Pain scale: 2/10. The symptoms are recurring. The problem is worsening. The primary symptoms reported include: pain and stiffness. The patient assesses the interval disease activity as: variable. The patient's assessment of treatment is: helping some. Associated symptoms include fatigue, AM stiffness (2 hrs) and joint swelling. Pertinent negatives include fever, mouth sores/lesions, chest pain and abdominal pain. musculoskeletal complaints Onset : March 2019. Reference interval of symptoms: since last visit. The severity of the problem is moderate. Pain scale: 4/10. The symptoms are constant. The problem is worsening. The primary symptoms reported include: pain. Associated symptoms include fatigue, AM stiffness (1 hr) and joint swelling. Pertinent negatives include fever, mouth sores/lesions, chest pain and abdominal pain. musculoskeletal complaints Onset : March 2019. The severity of the problem is moderate. Pain scale: 2/10. The symptoms are constant. The problem is improving. The patient denies: pain and stiffness. The patient assesses the interval disease activity as: stable. Associated symptoms include fatigue and joint swelling. Pertinent negatives include fever, AM stiffness, mouth sores/lesions, chest pain and abdominal pain. musculoskeletal complaints Onset : March 2019. Reference interval of symptoms: 1 Month. The severity of the problem is moderate. Pain scale: 4/10. The symptoms are constant. The problem is worsening. The primary symptoms reported include: pain and stiffness. The patient assesses the interval disease activity as: worse. The patient's assessment of treatment is: helping some. Pertinent negatives include fever, infection and fatigue. musculoskeletal complaints Onset : March 2019. Reference interval of symptoms: since last visit. The severity of the problem is moderate. Pain scale: 1/10. The symptoms are intermittent. The primary symptoms reported include: pain and stiffness. The patient assesses the interval disease activity as: stable. The patient's assessment of treatment is: helping some. The locations affected since last visit are migratory. Pertinent negatives include fever, infection, jaundice and urinary symptoms. musculoskeletal complaints Onset : March 2019. Reference interval of symptoms: 1 Month. The severity of the problem is moderate. Pain scale: 1/10. The symptoms are constant. The problem has worsened. The primary symptoms reported include: pain and stiffness. The patient assesses the interval disease activity as: worse. The patient's assessment of treatment is: helping some. Associated symptoms include joint swelling. Pertinent negatives include fever, infection, sicca complaints and edema. Musculoskeletal complaints Onset : March 2019. Reference interval of symptoms: since last visit. The severity of the problem is mild. Pain scale: 1/10. The symptoms are intermittent. The patient denies: pain and stiffness. The patient assesses the interval disease activity as: stable. The patient's assessment of treatment is: helping greatly. The locations affected since last visit are migratory. Pertinent negatives include fever, infection, sicca complaints, edema and joint swelling. musculoskeletal complaints Onset : March 2019. Reference interval of symptoms: since last visit. The severity of the problem is moderate. Pain scale: 1/10. The symptoms are intermittent. The problem is improving. The patient denies: pain and stiffness. Prescribed measures include: regimen. The patient assesses the interval disease activity as: stable. The patient's assessment of treatment is: helping some. The patient is not experiencing side effects. RAPID3 Score: 1.2. Pertinent negatives include fever, fatigue, AM stiffness, sicca complaints, mouth sores/lesions, chest pain, joint swelling and abdominal pain. musculoskeletal complaints Onset : March 2019. The severity of the problem is moderate. Pain scale: 2/10. The symptoms are intermittent. The primary symptoms reported include: pain and stiffness. Prescribed measures include: regimen. The patient assesses the interval disease activity as: stable. The patient's assessment of treatment is: helping some. The patient is not experiencing side effects. Associated symptoms include fatigue and AM stiffness (1 hr). RAPID3 Score: 2.6. Pertinent negatives include fever, sicca complaints, mouth sores/lesions, chest pain, joint swelling and abdominal pain. musculoskeletal complaints Onset : March 2019. Reference interval of symptoms: since last visit. The severity of the problem is moderate. Pain scale: 2/10. The symptoms are intermittent. The patient denies: pain and stiffness. Prescribed measures include: regimen. The patient assesses the interval disease activity as: improving. The patient is not experiencing side effects. Associated symptoms include fatigue. RAPID3 Score: 1.6. Pertinent negatives include fever, AM stiffness, sicca complaints, mouth sores/lesions, chest pain, joint swelling and abdominal pain. musculoskeletal complaints Onset : March 2019. Reference interval of symptoms: since last visit. The severity of the problem is moderate. Pain scale: 2/10. The symptoms are intermittent. The primary symptoms reported include: pain and stiffness. Prescribed measures include: regimen. The patient assesses the interval disease activity as: stable. The patient's assessment of treatment is: helping some. The patient is not experiencing side effects. Associated symptoms include fatigue and AM stiffness. RAPID3 Score: 2.7. Pertinent negatives include fever, sicca complaints, mouth sores/lesions, chest pain, joint swelling and abdominal pain. musculoskeletal complaints Onset : March 2019. Reference interval of symptoms: 2 Months. The severity of the problem is moderate. Pain scale: 4/10. The symptoms are constant. The problem is worsening. The primary symptoms reported include: pain and stiffness. The patient assesses the interval disease activity as: worse. The patient's assessment of treatment is: helping some. Associated symptoms include fatigue and AM stiffness. RAPID3 Score: 3.1. Pertinent negatives include fever, sicca complaints, mouth sores/lesions, chest pain, joint swelling and abdominal pain. musculoskeletal complaints Onset : Summer 2015. The severity of the problem is moderate. Pain scale: 4/10. The symptoms are constant. The problem has worsened. The primary symptoms reported include: pain. Associated symptoms include fatigue, AM stiffness and mouth sores/lesions. RAPID3 Score: 3.7. Pertinent negatives include fever, sicca complaints, chest pain, joint swelling and abdominal pain. musculoskeletal complaints Onset : Summer 2015. The severity of the problem is moderate. Pain scale: 3/10. The symptoms are intermittent. The problem has improved. The patient denies: pain and stiffness. Prescribed measures include: regimen. The patient assesses the interval disease activity as: improving. The patient's assessment of treatment is: helping some. The patient is not experiencing side effects. Pertinent negatives include sicca complaints. Follow Up of musculo skeletal complaints Onset: Summer 2015. The severity of the problem is mild. Pain scale: 3/10. The symptoms are intermittent. The problem has worsened. The primary symptoms reported include: pain and stiffness. The patient assesses the interval disease activity as: variable. The patient's assessment of treatment is: helping some. The patient is not experiencing side effects. The locations affected since last visit are low back. Associated symptoms include fatigue. RAPID3 Score: 3.7. Pertinent negatives include fever, AM stiffness, sicca complaints, mouth sores/lesions, chest pain, joint swelling and abdominal pain. musculoskeletal complaints Onset : Summer 2015. Reference interval of symptoms: since last visit. The severity of the problem is moderate. Pain scale: 2/10. The symptoms are intermittent. The problem is improving. The primary symptoms reported include: pain. The patient denies: stiffness. Prescribed measures include: regimen. The patient assesses the interval disease activity as: improving. The patient's assessment of treatment is: helping greatly. The patient is not experiencing side effects. Associated symptoms include fatigue, AM stiffness and mouth sores/lesions. RAPID3 Score: 1.8. Pertinent negatives include fever, sicca complaints, chest pain, joint swelling and abdominal pain. musculoskeletal complaints Onset : Summer 2015. Reference interval of symptoms: since last visit. The severity of the problem is moderate. Pain scale: 3/10. The symptoms are intermittent. The problem is improving. The primary symptoms reported include: pain. Associated symptoms include fatigue, AM stiffness and mouth sores/lesions. RAPID3 Score: 3.0. Pertinent negatives include fever, sicca complaints, chest pain, joint swelling and abdominal pain. musculoskeletal complaints Onset : Summer 2015. Reference interval of symptoms: since last visit. The severity of the problem is moderate. Pain scale: 3/10. The symptoms are intermittent. The problem is worsening. The primary symptoms reported include: pain and stiffness. The patient assesses the interval disease activity as: worse. Associated symptoms include fatigue, AM stiffness (2 hr) and mouth sores/lesions. RAPID3 Score: 3.5. Pertinent negatives include fever, sicca complaints, chest pain, joint swelling and abdominal pain. musculoskeletal complaints Onset : Summer 2015. The severity of the problem is mild. Pain scale: 3/10. The symptoms are intermittent. The primary symptoms reported include: pain. Prescribed measures include: cymbalta. The patient assesses the interval disease activity as: stable. The patient's assessment of treatment is: helping some. The patient is not experiencing side effects. The locations affected since last visit are low back, non articular sites (arms and legs). Associated symptoms include fatigue, AM stiffness, mouth sores/lesions and abdominal pain. RAPID3 Score: 3.2. Pertinent negatives include fever, sicca complaints, chest pain and joint swelling. musculoskeletal complaints Onset : Summer 2015. The severity of the problem is mild. Pain scale: 2/10. The symptoms are intermittent. The problem is improving. The primary symptoms reported include: pain. Prescribed measures include: cymbalta. The patient assesses the interval disease activity as: improving. The patient's assessment of treatment is: helping greatly. The patient is experiencing side effects. The side effects include: contstipation. No locations affected since patient's last visit. Associated symptoms include fatigue and abdominal pain. RAPID3 Score: 1.8. Pertinent negatives include fever, AM stiffness, sicca complaints, mouth sores/lesions, chest pain and joint swelling. musculoskeletal complaints Onset : Summer 2015. The severity of the problem is moderate. Pain scale: 2/10. The symptoms are constant. The problem has worsened. The primary symptoms reported include: pain. Associated symptoms include fatigue and abdominal pain. RAPID3 Score: 3.6. Pertinent negatives include fever, AM stiffness, sicca complaints, mouth sores/lesions, chest pain and joint swelling. musculoskeletal complaints Onset : Summer 2015. Reference interval of symptoms: since last visit. The severity of the problem is moderate. Pain scale: 5/10. The symptoms are intermittent. The primary symptoms reported include: pain, stiffness and fatigue. Prescribed measures include: topical. The patient assesses the interval disease activity as: stable. The patient's assessment of treatment is: helping some. Associated symptoms include fatigue. RAPID3 Score: 3.7. Pertinent negatives include fever, AM stiffness, mouth sores/lesions, chest pain, joint swelling and abdominal pain. musculoskeletal complaints Onset : Summer 2015. The severity of the problem is mild. Pain scale: 2/10. The symptoms are intermittent. The problem is improving. The primary symptoms reported include: pain. Prescribed measures include: IM kenalog. The patient assesses the interval disease activity as: improving. The patient's assessment of treatment is: helping greatly. The patient is not experiencing side effects. Associated symptoms include fatigue. RAPID3 Score: 1.5. Pertinent negatives include fever, AM stiffness, mouth sores/lesions, chest pain, joint swelling and abdominal pain. musculoskeletal complaints Onset : Summer 2015. The severity of the problem is moderate. Pain scale: 2/10. The symptoms are constant. The primary symptoms reported include: pain and stiffness. Prescribed measures include: tramadol and NSAID. The patient assesses the interval disease activity as: stable. The patient's assessment of treatment is: helping some. The patient is experiencing side effects. The side effects include: reflux. Associated symptoms include fatigue. RAPID3 Score: 2.2. Pertinent negatives include fever, AM stiffness, mouth sores/lesions, chest pain, joint swelling and abdominal pain. Functional Status Date Functional Assessmen t No Information Instructions Date Instruction Krista acosta Continue to monitor for an inflammatory arthropathy requiring DMARD therapyFor R gluteal pain, start PT. If not helpful will update imaging including MRI to r/o tear. An IM Toradol can be administered again in 2 weeksContinue Pristiq - prescribed elsewhere. Continue tramadol 50 mg 1-2 tabs once every 8 hours, 2-3 days a week usually. 3 times every day has helped with aching. As needed tizanidine at bedtimeDoes not tolerate NSAIDs well. Continue Lyrica 100mg in AM, 100mg in PM.Patient has seen Dr Andrea MATOS nightly. Continue calcium and vitamin DContinue Prolia - scheduled 05/2025. DEXA results discussed, shows imprvement.Intermittent pred 5mg - few times monthly helpfulFollow up as scheduled Prolia and F2F appt, labs that day. Related to Inflammatory polyarthropathy Continue Pristiq - p rescribed elsewhere. Continue tramadol 50 mg 1-2 tabs once every 8 hours, 2-3 days a week usually. 3 times every day has helped with aching. As needed tizanidine at bedtimeDoes not tolerate NSAIDs well. Continue Lyrica 100mg in AM, 100mg in PM.Patient has seen Dr Andrea MATOS nightly. Recommend restarting once feeling better.Continue calcium and vitamin DContinue Prolia - scheduled 05/2025. Based on DEXA results, will determine if we change to bisphosphonate. Intermittent pred 5mg - few times monthly [id number] IM Kenalog and 60mg IM Toradol - if yeast infection take a dose of oral anti-fungal prescribed for yeast infection Follow up 2 week DEXA same day before appointment. monitor MCP swelling Related to Inflammatory polyarthropathy Continue Pristiq - p rescribed elsewhere. Continue tramadol 50 mg 1-2 tabs once every 8 hours, 2-3 days a week usual. As needed tizanidine at bedtimeDoes not tolerate NSAIDs well. Continue Lyrica 100mg in AM, 100mg in PM.Patient has seen Dr Andrea MATOS nightly. Recommend restarting.Continue calcium and vitamin DContinue Prolia - scheduled 05/2025. Based on DEXA results, will determine if we change to bisphosphonate. Labs today for evaluating inflammatory labsIntermittent pred 5mg - few times monthly helpfulFollow up 3 months, DEXA same day before appointment Related to Inflammatory polyarthropathy Continue Pristiq - p rescribed elsewhere. Continue tramadol 50 mg 1-2 tabs once every 8 hours, 2-3 days a week usual. Increased after tooth extraction, reasonable. UDS todayPT once weekly.As needed tizanidine at bedtimeDoes not tolerate NSAIDs well. She is however benefitting and tolerating from 400mg ibuprofen per day, 1-2 tabs Aleve per week. Last labs unremarkableContinue Lyrica 100mg in AM, 100mg in PM.Patient has seen Dr Andrea MATOS nightly. Recommend restarting.Continue calcium and vitamin DContinue Prolia - schedule after 10/17Injected bilateral trochanteric bursae with 40mg triamcinolone. Patient to notify me of any adverse effectsLabs todayFollow up 3-4 months, labs today Related to Inflammatory polyarthropathy Continue Pristiq - p rescribed elsewhere. Continue tramadol 50 mg once every 8 hours, not daily. UDS reviewedPT for strengthening/conditioning - script givenAs needed tizanidine at bedtimeDoes not tolerate NSAIDs well. She is however benefitting and tolerating from 400mg ibuprofen per day, 1-2 tabs Aleve per week. Ok to continueContinue Lyrica 100mg in AM, 100mg in PM.Patient has seen Dr Andrea MATOS nightly.Continue calcium and vitamin DContinue Prolia - injecting todayIM Toradol 60 mg today. Want to limit Kenalog to twice a year. Can defer today. Just had influenza vaccineCan return for trochanteric bursa injections if neededLabs todayFollow up 3-4 months Related to Inflammatory polyarthropathy Continue Pristiq - p rescribed elsewhere. Continue tramadol 50 mg once every 8 hours as needed for pain. Refilled. UDS reviewedDiscussed gluteal and abdominal conditioning. Exercises demonstrated. Recommend short sessions several times a dayNot taking tizanidineDoes not tolerate NSAIDs well. She is however benefitting and tolerating from 400mg ibuprofen per day, 2-4 tabs Aleve per week. Ok to continueContinue Lyrica 100mg in AM, 100mg in PM.Patient has seen Dr Mendez - encouraged to use CPAP. Has not startedContinue calcium and vitamin DContinue Prolia. Due May 2024. Will have appt same dayIM Kenalog 80mg/IM Toradol 60 mg today - tolerates and benefits. Want to limit Kenalog to twice a yearLabs slip given - labs one month before the appt Related to Inflammatory polyarthropathy Continue Pristiq - p rescribed elsewhere. Continue tramadol 50 mg once every 8 hours as needed for pain. Pain contract. UDS today. She will call for refill.Not taking tizanidineDoes not tolerate NSAIDs well. Stop Excedrin, not helping.Continue Lyrica 100mg in AM, 100mg in PM.Patient has seen Dr Mendez - encouraged to use CPAP. Has not startedContinue calcium and vitamin DContinue Prolia. One day of nausea, then tolerated. Due 11/2023IM Kenalog 80mg/IM toradol 60 mg today for acute reliefFollow up 3-4 months. Basic labs today Related to Inflammatory polyarthropathy Video via [employer] Pristiq, tizanidine, tramadol (2-3 tabs per day) - prescribed elsewhere. Discussed timing of taking medications, bedtime, affects on balance and attentionDoes not tolerate NSAIDs well. Stop Excedrin, not helping.Continue Lyrica 100mg in AM, 100mg in PM.Patient has seen Dr Mendez - post sleep study. Directed to call for resultsRecommend increase aerobic activityContinue calcium and vitamin DContinue Prolia. One day of nausea, then toleratedFollow up 3 months. Labs up to date and reviewed Related to Inflammatory polyarthropathy Video via [employer] Pristiq, tizanidine, tramadol (2-3 tabs per day) - prescribed elsewhere. Does not tolerate NSAIDs well. Stop Excedrin, not helping.Continue Lyrica 100mg in AM, 100mg in PM.Sleep apnea mild - recommend revisiting sleep study given current symptoms. Recommend bed wedging, nasal dilation. Referred to Dr Mendez.Recommend increase aerobic activityFollow up as scheduledContinue calcium and vitamin DAfter discussion will proceed with a trial of Prolia and switching to zoledronate in an effort to provide a drug holiday ar a future juncture. Side effects UTI risk, fragility fracture, ONJ, low calcium, spasm, reaction, and other side effects possible. Related to Osteoporosis Continue Pristiq, ti zanidine, tramadol (2-3 tabs per day) - prescribed elsewhere. Does not tolerate NSAIDs well. Stop Excedrin, not helping.Continue Lyrica 100mg in AM, 100mg in PM.DEXA today. Basic labs today and labs to address fatigueSleep apnea mild - recommend revisiting sleep study given current symptoms. Recommend bed wedging, nasal dilation. Referred to Dr Mendez.Recommend increase aerobic activityFollow up 3 monthsReturn to clinic in 3 weeks for IM Kenalog and IM Toradol Related to Fibromyalgia Continue Pristiq, ti zanidine, tramadol - prescribed elsewhere. Does not tolerate NSAIDs well. Stop Excedrin, not helping.Continue Lyrica but may continue to reduce to help with brain fog - 50mg in AM, 100mg in PM.X-ray and MRI of C spine, L spinePrednisone taperOral decongestant for left ear pain - follow up with PCP if on-going. If calling hear, trial topical oral drops for otitis externa.Follow up as scheduled Related to Fibromyalgia Continue Pristiq, ti zanidine, tramadol - prescribed elsewhere. Does not tolerate NSAIDs well. We will cautiously try Excedrin in AM with food to help with brain fog however if GI upset occurs due to aspirin component, will stop.Stop prednisone.80mg IM Kenalog; 60mg IM Toradol today. If not improved, she will alert us.Continue Lyrica but may continue to reduce to help with brain fog - 50mg in AM, 100mg in PM x 10 days. If brain fog still present, stop AM dose and continue 100mg in PM. If still has issue - 50mg in PM x 1 week then stopFollow up 3-4 months Related to Fibromyalgia Continue Pristiq, ti zanidine, tramadol - prescribed elsewhere. Does not tolerate NSAIDs well.Continue as needed prednisone on bad days - has not required. RefilledPlan to reduce and stop Lyrica to help with brain fog - 50mg in AM, 100mg in PM x 10 days. If brain fog still present, stop AM dose and continue 100mg in PM. If still has issue - 50mg in PM x 1 week then stopFollow up 3-4 months May call if IM Toradol needed. Patient will call for trochanteric bursa injections when needed Related to Fibromyalgia Continue Pristiq, ti zanidine, tramadol - prescribed elsewhere. Does not tolerate NSAIDs well.Continue as needed prednisone on bad days - has not required.40mg Kenalog right knee. X ray right knee. Patient to notify me of any adverse effectsLeft trochanteric bursa injected with 40mg Kenalog, patient to notify me of any adverse effectsLyrica - increase to 100mg twice a day Follow up 3 monthsPatient will report status in 2 weeks. If not improved, will order MRI right [id number] IM Toradol, Dr administered Related to Fibromyalgia Continue Pristiq, ti zanidine, tramadol - prescribed elsewhere. Does not tolerate NSAIDs well.Continue as needed prednisone on bad days - has not required.Patient is travelling again.80mg IM Kenalog, 60mg IM Toradol todayWe will proceed with Lyrica 50mg twice a day. Side effects include edema. mood change and drowsiness. She would notify me of any adverse effects. Can increase dose if tolerating but not benefitting. Follow up 3 months Related to Fibromyalgia Continue Pristiq, ti zanidine, tramadol - prescribed elsewhere. Does not tolerate NSAIDs well.Continue as needed prednisone on bad days - has not required.80mg IM Kenalog, 60mg IM Toradol todayCommended for increasing activity in August but discussed increasing slower to prevent fibromyalgia pain increaseBasic labs today including inflammatory markersFollow up 4 months Related to Arthropathy, unspecified Continue Pristiq, ti zanidine, tramadol - prescribed elsewhere. Does not tolerate NSAIDs well.Continue as needed prednisone on bad days - has not required.Seeing urology - upcoming.Patient is doing much better, suspect kidney stone creating the symptomatology. She may follow up as needed Related to Arthropathy, unspecified Continue Pristiq (PC P prescribes, stopped duloxetine)Continue tizanidine (PCP prescribes, stopped flexeril)Continue tramadol - prescribed elsewhere.60mg IM Toradol, 80mg IM Kenalog, usually respondsContinue intermittent prednisone on bad days - Does not tolerate NSAIDs well.Follow up 3 months.Basic inflammatory labs todayLumbar and Left hip X rays. If she does not respond to IM injections, may consider a left iliopsoas bursa injection Related to Arthropathy, unspecified Continue Pristiq (PC P prescribes, stopped duloxetine)Continue tizanidine (PCP prescribes, stopped flexeril)Topiramate stopped, no longer having headachesContinue tramadol - prescribed elsewhere.60mg IM Toradol, usually responds. Deferring KenalogPatient can take intermittent prednisone on bad days - anticipating no more than 2-3 days in a row every 3-4 weeks. This would not be considered problematic. Does not tolerate NSAIDs well.Follow up 3 months.Labs up to date ok. Related to Inflammatory polyarthropathy Continue Cymbalta 30 mg dailyContinue flexeril 5mg as neededNo longer tolerating celebrex. Continue physical therapy. Continue Topamax in AM.Continue tramadol - prescribed elsewhere.80mg IM Kenalog, 60mg IM Toradol, usually responds. Patient to notify me of any adverse effectsFollow up 3 months.Basic labs today Related to Fibromyalgia Continue Cymbalta 30 mg dailyContinue flexeril 5mg as neededContinue celebrex twice a day with food, omeprazole 30 min prior to meal. Continue physical therapy. Continue Topamax in AM.Continue tramadol - prescribed elsewhere.Letter for standing desk at work provided.Labs at follow up 6 months Related to Fibromyalgia Continue Cymbalta 30 mg dailyContinue flexeril 5mg as neededContinue celebrex twice a day with food, omeprazole 30 min prior to meal. Continue physical therapy. Continue Topamax in AM.Continue tramadol - prescribed elsewhere.Letter for standing desk at work provided.Labs today and follow up 6 months Related to Fibromyalgia Continue Cymbalta 30 mg dailyContinue flexeril 5mg as neededWill prescribe celebrex twice a day with food. Start omeprazole 30 min before a meal. Start PT for left hip. Continue Topimax in AM.Continue tramadol - prescribed elsewhere.80mg IM Kenalog todayStanding desk at work is fine, would recommend alternating sit and standKeep next appt, consider hip joint injection. Related to Fibromyalgia Continue Cymbalta 30 mg dailyRecommended OTC topicals - thermacare, salonpas. Continue flexeril 5mg as neededContinue as needed Aleve or ibuprofen. If requiring daily, recommend omeprazole over the counter 30 min prior to meal.Continue Topimax in AM.Continue tramadol - prescribed elsewhere.Follow up 3 months Related to Fibromyalgia Continue Cymbalta 30 mg dailyRecommended OTC topicals - thermacare, salonpas. Continue flexeril 5mg as neededContinue as needed Aleve or ibuprofenReduce prednisone as follows: 40mg x 2 days, 30mg daily x 2 days, 20mg daily x 2 days, 10mg daily x 2 days then stop. If this is not tolerated, she is to alert me. There is still a chance there is PMRIf there is loss of vision - ER immediately for high dose steroidsWill proceed with topiramate 25mg twice a day. Side effects include drowsiness and weight loss. If tolerating but not benefitting, she may call for dose escalation. Neurology referral if she does not readily respondFollow up 8 weeks Related to Fibromyalgia Continue Cymbalta 30 mg daily.Recommended OTC topicals - thermacare, salonpas. Continue flexeril 5mg as neededStart 60mg prednisone daily. Explained implications of working diagnosis. If any vision changes, go to ER immediatelyRefer to Dr Vaughn for temporal artery biopsyFollow up 2 weeksBasic labs and chest X ray today Related to Other giant cell arteritis Continue Cymbalta 30 mg daily.Recommended OTC topicals - thermacare, salonpas. Continue flexeril 5mg as neededIM injection of kenalog 80 mg today for flareAdvised to call if no improvement or any worsening symptoms prior to her next appt. She will follow up with Dr. Arceo 04/20/19 Related to Fibromyalgia Continue Cymbalta 30 mg daily.Recommended OTC topicals - thermacare, salonpas. Continue flexeril 5mg as needed, not daily, better tolerated than RobaxinContinue high dose vitamin D for 3 months, and then 2000 IU daily over the counter.Follow up 6 months, notify us of any flare and need for sooner appt. Related to Fibromyalgia Continue Cymbalta 30 mg daily.IM kenalog injection today.Information provided on back exercises/stretches for low back pain. Continue regular exercise when tolerable.Recommended otc topicals - thermacare, salonpas. Check labs today: CBC, vitamin D given h/o deficiency.D/C robaxin given poor symptom relief - start Flexeril. Related to Fibromyalgia Continue Cymbalta 30 mg daily.Encouraged aerobic activity, start with 10-20 minutes 3 times weekly and increase to 20- 30 minutes after 2-3 weeks.Discussed nutrition efforts.Follow up 6-8 months. Labs that day.May be seen in clinic for Kenalog if needed. Related to Fibromyalgia Continue 60mg cymbal ta in AM, 30mg in PMWill go ahead and refer to endocrine to determine if there is an adrenal axis issue.Follow up 5-6 months, but will work in for any symptom exacerbationKenalog for breakthrough symptoms. Related to Fibromyalgia Increase AM dose of cymbalta to 60mg, continue 30mg daily.Cortisol this AM.80mg IM Kenalog.If she responds well, does not have inflammatory labs, will consider adrenal insufficiency work up.Follow up 6 weeks.May have to revisit sleep apnea as well if other efforts not helpful.Immunogobulin levels, Subclasses to detect IGG4 Related to Fibromyalgia Continue Cymbalta 60 mg dailyDue to her fatigue, will check CBC, CMP, TSH, T4, vit D today (low in past). She has history of thyroid nodule and will call about her routine thyroid USTry prn robaxin 500mg for bad days of muscle pain. Flexeril was sedating in the pastDiscussion of water aerobic exercise and gentle yoga for fibromyalgia and as ways to build up endurance for cardio exerciseFollow up 3 months Related to Arthropathy Continue Cymbalta 60 mg daily. Can consider dose increase in future if symptoms re-flareMay use topical over the counter cortisone cream for rashLabs at follow up 6 months. May return sooner if flare Related to Arthropathy Start Cymbalta 30 mg QD. Discussed side effects and provided informationStart prednisone taper for symptoms while waiting for Cymbalta to become effectiveRecommended having a sleep study. She has been told she has mild sleep apnea in the past, she will schedule an appt at the same facility she had her last sleep studyRecommended gentle exercises/stretchingDiscussed plan with Dr. Arceo. Related to Arthropathy Continue 2000 IU vit campbell D daily over the counter.We will proceed with repeat work up, may still be post viralKnee and L spine stable. Continue topical.100mg IM Kenalog, usually responds well.Patient will report status in about 7-10 days unless she worsens rather than improves.If pattern continues, no other findings, would consider a mild adrenal insufficiency since responds well to steroid, suspicion low. Related to Arthropathy After high dose grace min D complete, continue 2000 IU vitamin D daily over the counter.For knee, will proceed with topical pain cream. Patient to alert me to any adverse effects.Physical therapy written for. She is to alert me if symptoms worsen or become more persistent - will consider EMG and/or MRI.Xray L spine and knee today.Follow up as needed - she will call for appt if knee not improving. Related to Inflammatory polyarthropathy We will proceed with an inflammatory and metabolic work up.Knee and L spine Xrays next [id number] IM Kenalog. Side effects include insomnia, increased appetite, mood change. Patient to alert me to any adverse effects or worsening.Follow up 2-3 weeks. Related to Inflammatory polyarthropathy Assessments Type Assessment Date assessment Inflammatory polyarthropathy Mar impression Intermittent flares lymphadenopathy, fatigue. Has ongoing back pain. Back pain responds to tramadol. Intermittent knee painOn initial exam left knee lateral tenderness was minimal but area she identifies is suspicious for iliotibial band syndrome. Lower back pain was mechanical, no radiation, straight leg raise negative.Overall, patient suffered from a viral syndrome with lingering symptoms. Her conditioning has worsened. Myofascial pain accompanies the picture. She responded initially to Kenalog, my suspicion is that we calmed a post viral response. Lab work up unremarkable, mildly low vitamin D and phosphorous. Xray of the knee and L spine with some degenerative changes. On Cymbalta 30mg, could not tolerate higher doses due to GI symptoms. Robust response to IM Kenalog, inflammatory work up negative. Negative Endocrine work up. Responded to Kenalog in March. Increase in symptoms suspicious for giant cell arteritis, however temporal artery biopsy was negative and symptoms not responsive to high dose prednisone. Her course is not consistent with giant cell arteritis. NSAIDs provide relief but has acid reflux. Off prednisone. Left hip OA per x-ray with PCP. Cannot tolerate celebrex. Kenalog/Toradol provided less relief than usual. X-rays with mild lumbar degenerative changes, hip/pelvis normal. 10/2020- Kidney stone 8mm with obstruction, stent, lithotripsy. R knee and L GTB injections provided relief. IM Kenalog and IM Toradol helpful. Patient reduced pregabalin, noticed more pain, increased to usual dose. Patient had sleep study 8 years prior, mild sleep apnea. MRI C spine and L spine essentially unremarkable.At last appt, had DEXA with low T scores. Labs unremarkable. Had oophorectomy at age 46. Fractured ankle after fall - healed. Occurred after taking tizanidine and tramadol. Patient has ongoing back pain. Seeing chiropractor. Kenalog/Toradol helpful Today: Sleep interrupted. GTB injections helped. Dramatic improvement in MCP/hand pain after IM Kenalog and Toradol. Right gluteal pain today, nontender SI and nontender GTB. Previous lumbar x-ray mild DDD. DEXA 03/2025 with improvement on Prolia. 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
--- OUTSIDE RECORDS SUMMARY | 2025-04-26 05:00 | XMS_ITS ---
Author Organization [facility] in [place] Address [address] [place] [address] Care Team Providers Care Surgical Physician Assistant Name Role Phone Godwin Flood Primary Care Provider Jessa Fong Unavailable [phone] Allergies Allergen (clinical drug ingredient) Drug/Non Drug Allergy documented on EMR Reaction Allergy Type Onset Date Status Substance with sulfonamide structure and antibacterial mechanism of action (substance) Sulfa Antibiotics unknown Drug Allergy Active REASON FOR VISIT yearly wellness Medications Medication SIG (Take, Route, Frequency, Duration) Notes Start Date End Date Status Simvastatin 20 MG 1 tablet in the even ing Orally Once a day; Duration: 30 days 04/18/2024 Active Probiotic Active Aspirin Adult Low Dose 81 MG 1 tablet Orally Once a day Active Triple [place]-3-6-9 A ctive Social History Tobacco Use: Social History Observation Description Date Details (start date - stop date) Former Smoker 08/02/1985 - 08/02/2021 Tobacco Use/Smoking Question Answer Notes Patient is a former smoker When did you start smoking? 08/02/1985 When did you stop smoking? 08/02/2021 AUDIT-C (Standard) Question Answer Notes Did you have a drink contain ing alcohol in the past year? Yes How often did you have six o r more drinks on one occasion in the past year? Less than monthly (1 point) How many drinks did you have on a typical day when you were drinking in the past year? 3 or 4 drinks (1 point) How often did you have a dri nk containing alcohol in the past year? 2 to 3 times a week (3 points) Points 5 Interpretation Positive Vital Signs Weight 128 lbs 04/26/2025 Height 62 in 04/26/2025 Blood pressure systolic 120 mm Hg 04/26/20 25 Blood pressure diastolic 68 mm Hg 025 BMI 23.41 kg/m2 04/26/2025 Encounters Encounter Location Date Provider Diagnosis [facility] [address] [place] [address] 04/26/2025 Jessa Fong Well adult Z00.00 an d Hypercholesterolemia E78.00 Assessments Encounter Date Diagnosis (ICD Code) Assessment Notes Treatment Notes Treatment Clinical Notes Section Notes 04/26/2025 Well adult (ICD-10 - Z00.00) ROS done exam done not due for pap due for mammogram cologuard due next year pt states 04/26/2025 Hypercholesterolemia (ICD-10 - E78.00) Plan Of Treatment Medication Medication Name Sig Start Date Stop Date Notes Simvastatin 20 MG 1 tablet in the even ing Orally Once a day; Duration: 30 days 04/18/2024 Treatment Notes Assessment Notes Well adult ROS done exam done not due for pap due for mammogram cologuard due next year pt states Pending Test Test Name Order Date HEMOGLOBIN A1C (GLYCO) 04/26/2025 IRON, TOTAL 04/26/2025 LIPID PANEL (CHOL/TRIG/HDL/LDL) 04/26/20 25 VITAMIN D, 25 LEVEL (TOTAL) 04/26/2025 Insulin Level 04/26/2025 THYROID PANEL (T4/TSH/FREE T3) CMP (COMP MET RADER) w/eGFR CKD-EPI 2024 CBC WITH DIFF 04/26/2025 Next Appt Details Follow Up: 1 Year,prn, Reaso n: Progress Notes * Starr LOWE SDOB:03/1965 (60 yo F)Acc No.[id number]:04/26/2025 UNLOCKED PROGRESS NOTE Progress Note Patient: Starr WADE Provider: Navjot Fong ([facility]), GRINDER LAP :1965 A ge:60 Y S ex:Female Date:04/26/2025 [facility] Pcp:Godwin Flood Check In:08:50 AM ESTCheck O ut:09:10 AM EST Subjective: * Chief Complaints: * 1 . Yearly wellness. 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 D epression Screening: PHQ-2 (2015 Edition) L ittle interest or pleasure in doing things??Not at all F eeling down, depressed, or hopeless? N ot at all T otal Score 0 * ROS: G eneral/Constitutional: Fever d enies. H eadache d enies. W eight loss?denies. O phthalmologic: Discharge d enies. E ye Pain d enies. I tching and redness d enies. E NT: Nasal discharge d enies. N bill congestion d enies.?Sore throat d enies. C ardiovascular: Chest tightness/ heavy pressure d enies. R apid heart rate d enies. S welling of extremities d enies. C hest pain d enies. ? R espiratory: Productive cough d enies. C hest pain d enies. C ough d enies. S hortness of breath d enies. W heezing d enies. ? G astrointestinal: Abdominal pain d enies. C onstipation d enies. D ecreased appetite d enies. D iarrhea d enies. N ausea d enies. V omiting?denies. G enitourinary: Urinary incontinence d enies. P ainful urination d enies. M usculoskeletal: Back pain d enies. N tito pain d enies. M uscle aches d enies. S kin: Rash d enies. S kin lesion(s) d enies. ? * Medical History: P ityriasis versicolor, Shoulder impingement syndrome, Seasonal allergic rhinitis, Shingles.? * Surgical History: R otator Cuff Repair- Left , Repaired tender- left middle finger . * Family History: F ather: . M other: , diagnosed with Diabetes mellitus without mention of complication, type II or unspecified type, not stated as uncontrolled. B julianna(s): alive. S anthony(s): alive, breast cancer, diagnosed with Other malignant neoplasm of unspecified site. S on(s): alive. 3 brother(s) , 1 sister(s) - healthy. 1 son(s) - healthy. . * Social History: T obacco Use: T obacco Use/Smoking P atient is a f ormer smoker W jayashree did you start smoking? 0 08/02/1985 W hen did you stop smoking? 0 08/02/2021 D rug/Alcohol: A BELEN-C (Standard) D id you have a drink containing alcohol in the past year? Y es H ow often did you have six or more drinks on one occasion in the past year? L ess than monthly (1 point) H ow many drinks did you have on a typical day when you were drinking in the past year? 3 or 4 drinks (1 point) H ow often did you have a drink containing alcohol in the past year? 2 to 3 times a week (3 points) P oints 5 I nterpretation P ositive * Medications: T aking Aspirin Adult Low Dose(Aspirin) 81 MG Tablet Delayed Release 1 tablet Orally Once a day , Taking Probiotic , Taking Simvastatin 20 MG Tablet 1 tablet in the evening Orally Once a day , Taking Triple [place]-3-6-9 , Medication List reviewed and reconciled with the patient * Allergies: S ulfa Antibiotics: unknown - Allergy. Objective: * Vitals: W t:128lbs, Ht: 62 in, BP:120/68mm Hg, BMI:23.41Index. * Examination: G eneral Examinations: GENERAL APPEARANCE: a lert and oriented, i n no acute distress. EYES: c onjunctiva normal, sclera non-icteric. EARS: e xternal auditory canals are patent. Tympanic membranes are pearly will and mobile. NOSE: n ormal external appearance. LUNGS: c lear to auscultation bilaterally. CARDIO: r egular rate and rhythm, S1, S2 normal, no edema.? ABDOMEN: s oft, nontender. MUSCULOSKELETAL: G ait and station normal. SKIN: w arm and dry. Assessment: * Assessment: 1. W ell adult - Z00.00 (Primary) 2 . H ypercholesterolemia - E78.00 ? Plan: * Treatment: 2. H ypercholesterolemia Refill Simvastatin Tablet, 20 MG, 1 tablet in the evening, Orally, Once a day, 30 days, 30, Refills 11. 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 Tympanic membranes are pearly will and mobile NOSE: normal external appe arance THROAT: CARDIO: regular rate and rhy thm, S1, S2 normal, no edema LUNGS: clear to auscultatio n bilaterally ABDOMEN: soft, nontender SKIN: warm and dry BACK: MUSCULOSKELETAL: Gait and station nor mal LYMPH NODES:
--- OUTSIDE RECORDS SUMMARY | 2025-04-27 06:40 | XMS_ITS | Patient Health Record ---
Author Organization [facility] in [place] Address [address] [place] [address] Care Team Providers Care Iron Assorter Name Role Phone Godwin Flood Primary Care Provider Jessa Fong Unavailable [phone] Allergies Allergen (clinical drug ingredient) Drug/Non Drug Allergy documented on EMR Reaction Allergy Type Onset Date Status Substance with sulfonamide structure and antibacterial mechanism of action (substance) Sulfa Antibiotics unknown Drug Allergy Active Results Component Value Reference Range Notes CT soft tissue neck w con Reviewed date:05/20/2024 07:23:55 PM Interpretation: Performing Lab: Notes/Report: Source Facility: [place] [address] CT Scan Report Signed Patient: STEPHON LOWE MR#: [id number] : 1965 Acct:[id number] Age/Sex: 59 / F ADM Date: 05/20/24 Loc: ER Attending Dr: Ordering Physician: Prince Reynaga Date of Service: 05/20/24 Procedure(s): CT soft tissue neck wo con Accession Number(s): [id number] cc: Carlos Alberto Flood M.D. [place] [address] Patient Name: STEPHON LOWE MRN: [id number] date: 1965 Sex: F Assigned Patient Location: ER Current Patient Location: ER Accession/Order Number: [id number] Exam Date: 05/20/2024 18:20 Report Date: 05/20/2024 18:55 At the request of: PRINCE REYNAGA Procedure: CT soft tissue neck wo con CT NECK WITHOUT CONTRAST, 05/20/2024. HISTORY: Throat pain. Swallowed a bee. COMPARISON: None. TECHNIQUE: Noncontrast axial CT images obtained through the neck. Reconstructions obtained in the sagittal and coronal planes. Dose reduction techniques were achieved by using automated exposure control and/or adjustment of mA and/or kV according to patient size and/or use of iterative reconstruction technique. FINDINGS: Visualized posterior fossa contents are unremarkable. Paranasal sinuses appear clear. Middle ear cavities clear. Mastoid air cells clear. Skull base intact. Shook Splicer spaces appear normal. The parotid glands are normal. Submandibular glands normal. The tongue and floor of the mouth are normal. The nasopharynx is normal. There is edema along the oropharynx most prominent on the right side. There is some edema in the parapharyngeal space on the right. There is mucosal edema along the hypopharynx extending into the supraglottic laryngeal region with effacement of the piriform sinuses bilaterally. There is edema in the retropharyngeal space. There is no significant swelling of the epiglottis. No significant airway compromise at this time. Vocal cords are symmetric. There is some edema extending into the soft tissues along the right lobe of the thyroid gland. Trachea appears normal. Visualized portion of the esophagus unremarkable. No lymphadenopathy. No fluid collections. Lung apices are clear. Moderate multilevel degenerative disc disease most prominent at C4-C5 and C5-C6. No suspicious osseous lesions. CT/CT soft tissue neck wo con IMPRESSION: 1. There is soft tissue swelling and edema throughout the airway. There is mucosal edema along the oropharynx and hypopharynx. There is some edema throughout the parapharyngeal space and retropharyngeal space. 2. There is no significant airway compromise at this time. 3. There is no significant swelling of the epiglottis. Vocal cords are symmetric. 4. No loculated fluid collection appreciated. No evidence of an abscess. No soft tissue gas. Electronically authenticated by: KY VIDAL Date: 05/20/2024 18:55 Dictated By: Ky Vidal M.D. Signed By: 05/20/241856 DD/ 54 TD/TT: Seal Mixing Operator: Reason For Referral No Information Medications Medication SIG (Take, Route, Frequency, Duration) Notes Start Date End Date Status Simvastatin 20 MG 1 tablet in the even ing Orally Once a day; Duration: 30 days 04/18/2024 Active Probiotic Active Aspirin Adult Low Dose 81 MG 1 tablet Orally Once a day Active Triple [place]-3-6-9 A ctive Social History Tobacco Use: Social [...] week (3 points) Points 5 Interpretation Positive Problems Problem Type SNOMED Code ICD Code Onset Dates Problem Status W/U Status Risk Notes Problem Well adult (830543105) Well adult (Z00.00) Active confirmed Problem Hypercholesterolemia (59662896) Hypercholesterolemia (E78.00) Active confirmed Vital Signs Blood pressure diastolic 68 mm Hg 04/26/2025 Height 62 in 04/26/2025 Blood pressure systolic 120 mm Hg 04/26/2025 Weight 128 lbs 04/26/2025 BMI 23.41 kg/m2 04/26/2025 Encounters Encounter Location Date Provider Diagnosis [facility] [address] [place] [address] 04/26/2025 Jessa Fong Well adult Z00.00 an d Hypercholesterolemia E78.00 Assessments Encounter Date Diagnosis (ICD Code) Assessment Notes Treatment Notes Treatment Clinical Notes Section Notes 04/26/2025 Well adult (ICD-10 - Z00.00) ROS done exam done not due for pap due for mammogram cologuard due next year pt states 04/26/2025 Hypercholesterolemia (ICD-10 - E78.00) Plan Of Treatment Pending Test Test Name Order Date CMP (COMPLETE METABOLIC PANEL) 3 CMP (COMPLETE METABOLIC PANEL) 4 CMP (COMPLETE METABOLIC PANEL) 4 HEMOGLOBIN A1C (GLYCO) 02/17/2023 HEMOGLOBIN A1C (GLYCO) 04/14/2024 HEMOGLOBIN A1C (GLYCO) 04/26/2025 INSULIN, TOTAL 04/14/2024 IRON, TOTAL 04/26/2025 LIPID PANEL (CHOL/TRIG/HDL/LDL) 02/18/20 23 LIPID PANEL (CHOL/TRIG/HDL/LDL) 04/14/20 24 LIPID PANEL (CHOL/TRIG/HDL/LDL) 04/26/20 25 CBC WITH DIFF 04/14/2024 CBC WITH DIFF 02/17/2023 VITAMIN D, 25 LEVEL (TOTAL) 04/26/2025 MAMM Mammograms CAD 02/17/2023 Insulin Level 04/26/2025 STOOL OCCULT BLOOD 02/17/2023 LIPID PROFILE 04/14/2024 THYROID PANEL (T4/TSH/FREE T3) 4 THYROID PANEL (T4/TSH/FREE T3) 3 THYROID PANEL (T4/TSH/FREE T3) 5 CMP (COMP MET RADER) w/eGFR CKD-EPI 2024 CBC WITH DIFF 04/26/2025 Insurance Providers Payer Name Payer Address Payer Phone Subscriber Number Group Number Insured Name Patient Relationship to Insured Coverage Start Date Coverage End Date [employer] [address] [address] [place] [address] [id number] Stephon Lowe Self - patient is the insured Medical (General) History Medical History History ICD Code Pityriasis versicolor B36.0 Shoulder impingement syndrome M75.40 Seasonal allergic rhinitis J30.2 Shingles B02.9 Surgical History Surgery Date(Month/Year) Repaired tender- left middle finger Rotator Cuff Repair- Left
--- OUTSIDE RECORDS SUMMARY | 2025-04-27 06:40 | XMS_ITS | CCD ---
Author Organization [facility] Care Team Providers Care Central Service Technician Name Role Phone DR JOSE L MONTENEGRO Admitting Unavailable KARASIK, DR DOMINGO Consulting Unavailable KARCHRISTINEK, DR DOMINGO Attending Unavailable CALVIN, DR LEE Primary Care Unavailable KARCHRISTINEK, DR DOMINGO Admitting Unavailable MONI, DR DOMINGO Consulting Unavailable MONI, DR DOMINGO Attending Unavailable CALVIN, DR LEE Primary Care Unavailable WEST, DR ELLE Lopez Consulting Unavailable ELLE ROMERO Consulting Unavailable CALVIN, DR LEE Primary Care Unavailable CALVIN, DR LEE Consulting Unavailable CALVIN, DR LEE Attending Unavailable CALVIN, DR LEE Admitting Unavailable MD Rosa Simpson Primary Care Provider [phone] DANNIE Torres Attending Provider [phone] Karma Torres Attending Unavailable Karma Torres Admitting Unavailable Rosa Simpson Primary Care Unavailable Problems Problem Classification Problem Date Documented Date Episodic/Chronic Abdominal pain (1 source) Unspecified abdominal pain; Translations: [Unspecified abdominal pain] Onset: 05-27-2023 Episodic Immunizations and screening for infectious disease (1 source) Encounter for screening for human papillomavirus (HPV); Translations: [ENC SCREENING HUMAN PAPILLOMAVIRUS] Onset: 03-06-2022 Episodic Other screening for suspected conditions (not mental disorders or infectious disease) (8 sources) Encounter for screening mammogram for malignant neoplasm of breast; Translations: [Encounter for screening for malignant neoplasm of cervix] Onset: 03-04-2022 Episodic Residual codes; unclassified (1 source) Asymptomatic menopausal state; Translations: [ASYMPTOMATIC MENOPAUSAL STATE] Onset: 03-12-2022 Episodic Residual codes; unclassified (1 source) Family history of malignant neoplasm of breast; Translations: [FAMILY HX MALIG NEOPLASM OF BREAST] Onset: 03-12-2022 Episodic Residual codes; unclassified (1 source) Family history of malignant neoplasm of trachea, bronchus and lung; Translations: [FAM HX MALLULU NEOPLSM TRACH BRON LNG] Onset: 03-12-2022 Episodic Residual codes; unclassified (1 source) Family history of malignant neoplasm of other organs or systems; Translations: [FAM HX MALLULU NEOPLASM OTH ORGN/SYS] Onset: 03-12-2022 Episodic Results Test Name Value Interpretation Reference Range Facil ity Urine Cultureon 05-27-2023 Bacteria identified Cx Nom (U) ORGANISM: Escherichia coli (O:ESCCOL) [place] Count >100,000 Aerobic PERLITA Charge (NMIC56) --- SUSCEPTIBILITY -- ORGANISM: O:ESCCOL ANTIBIOTIC INTERPRETATION PERLITA Amikacin S <16 Amoxacillin/K Clavulanate S <8 Ampicillin S <8 Ampicillin/Sulbactam S <4 Aztreonam S <4 Cefazolin S <2 Cefepime S <2 Ceftazidime S <1 Ceftazidime/Avibactam S <4 Ceftolozane/Tazobactam S <2 Ceftriaxone S <1 Cefuroxime S <4 Ciprofloxacin S <0.25 Ertapenem S <0.5 Gentamicin S <2 Levofloxacin S <0.5 Meropenem S <1 Meropenem/Vaborbactam S <2 Nitrofurantoin S <32 Piperacillin/Tazobacta m S <8 Tetracycline S <4 Tigecycline S <2 Tobramycin S <2 Trimethoprim/Sulfameth oxazole S <0.5 S = SUSCEPTIBLE I = INTERMEDIATE R = RESISTANT BLANK = DATA NOT AVAILABLE, OR DRUG NOT ADVISABLE OR TESTED R* = RESISTANCE DUE TO EXTENDED SPECTRUM BETA-LACTAMASES ESBL = EXTENDED SPECTRUM BETA-LACTAMASE TFG = THYMIDINE-DEPENDENT STRAIN MELVIN = BETA-LACTAMASE POSITIVE IB = INDUCIBLE BETA-LACTAMASE. APPEARS IN PLACE OF 'S' WITH SPECIES KNOWN TO POSSESS INDUCIBLE BETA-LACTAMASES. POTENTIALLY THEY MAY BECOME RESISTANT TO ALL B-LACTAM DRUGS. PERFORMED BY: [address] [place] [address] PATHOLOGIST DRAINAGE DESIGN COORDINATOR JEIMY CANNON M.D. [facility] Comment on above: Performed By: #### C UU #### [place] [id number] [facility] MG MAMM SCREEN 3D LUNA CADon 03-11-2022 MG MAMM SCREEN 3D LUNA CAD Patient: STEPHON LOWE Exam Date: 03/11/2022 : 1965 Gender:F Ordering : DR JOSE L MONTENEGRO . Admission #: [id number] Family : Order #: [id number] CLICK HERE TO VIEW EXAM RADIOLOGY REPORT PROCEDURE: MAMMOGRAM SCREENING 3D BILATERAL CAD COMPARISON: MG MAMM SCREEN LUNA W CAD, 03/01/2018. MG MAMM SCREEN LUNA W CAD, 03/21/2019. INDICATIONS: Screening mammography Calculator Name NCI Breast Cancer Risk Assessment Tool 5 Year Breast Cancer Risk 1.20% Lifetime Breast Cancer Risk 8.10% Personal Breast Cancer No Personal Ovarian Cancer No Treatments None Family Cancers Grandmother-paternal with breast cancer at age 60; Grandmother-maternal with bone cancer at age 65; Grandfather-paternal with lung cancer at age 55. LOCATION: [facility] BREAST COMPOSITION: Extremely dense, which lowers the sensitivity of mammography. FINDINGS: DIAGNOSTIC CATEGORY 2--BENIGN FINDING. NO CHANGE FROM COMPARISON. Scattered benign-appearing calcifications are present. Scattered benign-appearing lymph nodes are present. RIGHT BREAST: No significant suspicious finding. LEFT BREAST: No significant suspicious finding. RECOMMENDATIONS: ROUTINE MAMMOGRAM AND CLINICAL EVALUATION IN 12 MONTHS. PLEASE NOTE: A NORMAL MAMMOGRAM DOES NOT EXCLUDE THE POSSIBILITY OF BREAST CANCER. A CLINICALLY SUSPICIOUS PALPABLE LUMP SHOULD BE BIOPSIED. Dictated by: Elle Pineda MD on 03/11/2022 at 07:55 Approved by: Elle Pineda MD on 03/11/2022 at 07:57 Normal [facility] XR DEXA BONE DENSITYon 03-11 XR DEXA BONE DENSITY DEXA Bone Density Study CLINICAL: Evaluate bone mineral density. Postmenopausal COMPARISON: None FINDINGS: The bone density study was assessed by dual-energy x-ray absorptiometry with the Moleculin scanner. The test results are expressed in T-Score, which is used for diagnosis for osteoporosis, and reflects the standard deviations from the mean peak bone mineral density in young adults. Additional information regarding the Z-Score reflects the standard deviations from the mean peak bone mineral density for age- and gender- matched subject. Lumbar Spine (L1-L4): BMD (gm/cm2): 1.434 T-Score: 2.1 Left Hip: BMD (gm/cm2): 1.060 T-Score: 0.4 Left Femoral Neck: BMD (gm/cm2): 0.943 T-Score: -0.7 Right Hip: BMD (gm/cm2): 1.89 T-Score: 0.6 Right Femoral Neck: BMD (gm/cm2): 1.016 T-Score: -0.2 IMPRESSION: 1. Lumbar spine and left hip and right hip indicate no osteopenia or osteoporosis. REFERENCE: In children, postmenopausal women and males under age 50 not at increased risk for fractures, only Z-Scores, not T-Scores, are used to indicate fracture risk. A Z-Score above -2.0 is defined as within the expected range for age and Z-Score at or less than -2.0 is below the expected range for age. A Z-Score below the expected range for age in a patient with recent fractures and/or chronic corticosteroid treatment is consistent with a diagnosis of osteoporosis. In postmenopausal women and males over 50, comparison of the measured bone mineral density with the average value in young normal subjects (the T-Score) has been found to be useful in assessing fracture risk. Fracture risk approximately doubles for each 1.0 standard deviation (SD) that the individual's hip or spine bone mineral density is below the average value of young normal subjects. The World health Organization (WHO) has provided the following definitions: 1. Normal: T-Score within one standard deviation of young adult mean value (T-Score greater than -1.0). 2. Osteopenia (low bone mass): T-Score more than one standard deviation below the young adult mean but less than 2.5 standard deviations below the young adult mean (T-Score between -1.0 and -2.5). 3. Osteoporosis: T-Score more than 2.5 standard deviations below the young adult mean (T-Score less than -2.5). 4. Sever Osteoporosis (established osteoporosis): T-Score more than 2.5 standard deviations below young adult and one or more fragility fracture (T-Score less than -2.5 + fragility fractures). Electronically authenticated by: ELLE ROMERO Date: 2022-03-11 08:48 Normal [facility] PAP ACOG PANEL 2: 30 to 65on 03-10-2022 . . Normal [facility] Comment on above: Result Comment: Perf ormed at: WB Performed By: #### [id number] #### [facility] [address] [address] [address] Aubrei Elliott Age Gdln ACOG Testing 30-65 Normal [facility] Comment on above: Performed By: #### [id number] #### [facility] [address] [address] [address] Aubrie Elliott DIAGNOSIS: Comment Normal [facility] Comment on above: Result Comment: NEGA TIVE FOR INTRAEPITHELIAL LESION OR MALIGNANCY. Performed at: WB Performed By: #### [id number] #### [facility] [address] [address] [address] Aubrie Elliott HPV Aptima Positive Abnormal Negative [facility] Comment on above: Result Comment: This nucleic acid amplification test detects fourteen high-risk HPV types (16,18,31,33,35,39,45,51,52,56,58,59,66,68) without differentiation. Performed at: =G Performed By: #### [id number] #### [facility] [address] [address] [address] Aubrie Elliott HPV Genotype 16 Positive Abnormal Negative [facility] Comment on above: Result Comment: Perf ormed at: =G Performed By: #### [id number] #### [facility] [address] [address] [address] Aubrie Elliott HPV Genotype 18,[address] [facility] Comment on above: Result Comment: Perf ormed at: =G Performed By: #### [id number] #### [facility] [address] [address] [address] Aubrie Elliott Methodology: Comment Normal [facility] Comment on above: Result Comment: This liquid based ThinPrep(R) pap test was screened with the use of an image guided system. Performed at: WB Performed By: #### [id number] #### [facility] [address] [place] [address] Dr. Aubrie Elliott Note: Comment Normal [facility] Comment on above: Result Comment: The Pap smear is a screening test designed to aid in the detection of premalignant and malignant conditions of the uterine cervix. It is not a diagnostic procedure and should not be used as the sole means of detecting cervical cancer. Both false-positive and false-negative reports do occur. . Performed at: WB Performed By: #### [id number] #### [facility] [address] [place] [address] Dr. Aubrie Elliott Performed by: Comment Normal [facility] Comment on above: Result Comment: Emil Bell, Pantry Attendant (ASCP) Performed at: WB Performed By: #### [id number] #### [facility] [address] [place] [address] Dr. Aubrie Elliott Specimen adequacy: Comment Normal [facility] Comment on above: Result Comment: Sati sfactory for evaluation. Endocervical and/or squamous metaplastic cells (endocervical component) are present. Performed at: WB Performed By: #### [id number] #### [facility] [address] [place] [address] Dr. Aubrie Elliott CBC AUTO DIFFon 10-09-2021 BASO # 0.0 103/ul Normal 0.0-0.1 [facility] Comment on above: Performed By: #### C BC #### [facility] [address] [place] [address] Dr. Aubrie Elliott Basophils/100 WBC (Bld) 0.4 % Normal 0.2-2.0 [facility] Comment on above: Performed By: #### C BC #### [facility] [address] [place] [address] Dr. Aubrie Elliott EO # 0.1 103/ul Normal 0.0-0.7 [facility] Comment on above: Performed By: #### C BC #### [facility] [address] [place] [address] Dr. Aubrie Elliott Eosinophils/100 WBC (Bld) 1.1 % Normal 0.9-7.0 [facility] Comment on above: Performed By: #### C BC #### [facility] [address] [place] [address] Dr. Aubrie Elliott Erythrocyte distribution width (RBC) [Ratio] 11.8 % Normal 11.0-15.0 [facility] Comment on above: Performed By: #### C BC #### [facility] [address] [place] [address] Dr. Aubrie Elliott Hematocrit (Bld) [Volume fraction] 41.2 % Normal 36.0-48.0 [facility] Comment on above: Performed By: #### C BC #### [facility] [address] [place] [address] Dr. Aubrie Elliott Hemoglobin (Bld) [Mass/Vol] 13.7 g/dL Normal 12.0-16.0 [facility] Comment on above: Performed By: #### C BC #### [facility] [address] [place] [address] Dr. Aubrie Elliott IG # 0.01 10e3/ul Normal 0.00-0.03 [facility] Comment on above: Performed By: #### C BC #### [facility] [address] [place] [address] Dr. Aubrie Elliott IG % 0.2 % Normal 0.0-0.5 [facility] Comment on above: Performed By: #### C BC #### [facility] [address] [place] [address] Dr. Aubrie Elliott LYMPH # 1.9 103/ul Normal 1.2-3.8 [facility] Comment on above: Performed By: #### C BC #### [facility] [address] [place] [address] Dr. Aubrie Elliott Lymphocytes/100 WBC (Bld) 35.0 % Normal 20.5-60.0 [facility] Comment on above: Performed By: #### C BC #### [facility] [address] [place] [address] Dr. Aubrie Elliott MANUAL DIFF REQ NO Normal [facility] Comment on above: Performed By: #### C BC #### [facility] [address] [place] [address] Dr. Aubrie Elliott MCH (RBC) [Entitic mass] 32.2 pg Normal 26.7-34.0 [facility] Comment on above: Performed By: #### C BC #### [facility] [address] [place] [address] Dr. Aubrie Elliott MCHC (RBC) [Mass/Vol] 33.3 g/dL Normal 29.9-35.2 [facility] Comment on above: Performed By: #### C BC #### [facility] [address] [place] [address] Dr. Aubrie Elliott MCV (RBC) [Entitic vol] 96.9 fL Normal 81.0-99.0 [facility] Comment on above: Performed By: #### C BC #### [facility] [address] [place] [address] Dr. Aubrie Elliott MONO # 0.4 103/ul Normal 0.3-0.8 [facility] Comment on above: Performed By: #### C BC #### [facility] [address] [place] [address] Dr. Aubrie Elliott Monocytes/100 WBC (Bld) 7.8 % Normal 1.7-12.0 [facility] Comment on above: Performed By: #### C BC #### [facility] [address] [place] [address] Dr. Aubrie Elliott NEUT # 3.0 103/ul Normal 1.4-6.5 [facility] Comment on above: Performed By: #### C BC #### [facility] [address] [place] [address] Dr. Aubrie Elliott Neutrophils/100 WBC (Bld) 55.5 % Normal 43.0-75.0 [facility] Comment on above: Performed By: #### C BC #### [facility] [address] [place] [address] Dr. Aubrie Elliott Platelet mean volume (Bld) [Entitic vol] 8.9 fL Critically low 9.5-13.5 [facility] Comment on above: Performed By: #### C BC #### [facility] [address] [address] [address] Aubrie Elliott PLT 232 103/ul Normal 150-450 [facility] Comment on above: Performed By: #### C BC #### [facility] [address] [address] [address] Aubrie Elliott RBC 4.25 106/ul Normal 4.20-5.40 [facility] Comment on above: Performed By: #### C BC #### [facility] [address] [address] [address] Aubrie Elliott WBC 5.4 103/ul Normal 4.0-11.0 [facility] Comment on above: Performed By: #### C BC #### [facility] [address] [place] [address] Dr. Aubrie Elliott FREE THYROXINE INDEX T7on FTI 2.45 Normal [facility] Comment on above: Performed By: #### C MP, LIPID, T7, TSH #### [facility] [address] [place] [address] Dr. Aubrie Elliott T3U 36.0 % Normal 23.5-40.5 [facility] Comment on above: Performed By: #### C MP, LIPID, T7, TSH #### [facility] [address] [place] [address] Dr. Aubrie Elliott T4 [Mass/Vol] 6.80 ug/dL Normal 5.53-11.00 [facility] Comment on above: Performed By: #### C MP, LIPID, T7, TSH #### [facility] [address] [place] [address] Dr. Aubrie Elliott LIPID PROFILEon 10-09-2021 CHOL-HDL RATIO NORM SEE BELOW Normal [facility] Comment on above: Result Comment: 3.3 - 4.4 LOW RISK 4.4 - 7.1 AVERAGE RISK 7.1 - 11.0 MODERATE RISK >11.0 HIGH RISK Performed By: #### C MP, LIPID, T7, TSH #### [facility] [address] [place] [address] Dr. Aubrie Elliott Cholesterol [Mass/Vol] 255 mg/dL Critically high <=200 [facility] Comment on above: Performed By: #### C MP, LIPID, T7, TSH #### [facility] [address] [address] [address] Aubrie Elliott Cholesterol in HDL [Mass/Vol] 69 mg/dL Normal [facility] Comment on above: Performed By: #### C MP, LIPID, T7, TSH #### [facility] [address] [address] [address] Aubrie Elliott Cholesterol in LDL [Mass/Vol] 163.2 mg/dL Normal [facility] Comment on above: Performed By: #### C MP, LIPID, T7, TSH #### [facility] [address] [address] [address] Aubrie Elliott Cholesterol.total/ Cholesterol in HDL [Mass ratio] 3.7 {ratio} Normal [facility] Comment on above: Performed By: #### C MP, LIPID, T7, TSH #### [facility] [address] [address] [address] Aubrie Elliott HDL NORMAL > or = 60 mg/dl - LO W CARDIOVASCULAR RISK <40 mg/dl - HIGH CARDIOVASCULAR RISK Normal [facility] Comment on above: Performed By: #### C MP, LIPID, T7, TSH #### [facility] [address] [address] [address] Aubrie Elliott LDL CALC NORMAL SEE BELOW Normal [facility] Comment on above: Result Comment: <100 mg/dl OPTIMAL 100 - 129 mg/dl NEAR OR ABOVE OPTIMAL 130 - 159 mg/dl BORDERLINE HIGH 160 - 189 mg/dl HIGH >190 mg/dl VERY HIGH Performed By: #### C MP, LIPID, T7, TSH #### [facility] [address] [address] [address] Aubrie Elliott Triglyceride [Mass/Vol] 114 mg/dL Normal <=150 [facility] Comment on above: Performed By: #### C MP, LIPID, T7, TSH #### [facility] [address] [address] [address] Aubrie Elliott VLDL CALC 22.8 mg/dL Normal [facility] Comment on above: Performed By: #### C MP, LIPID, T7, TSH #### [facility] [address] [place] [address] Dr. Aubrie Elliott PROF 14(COMP METB)on 022 Albumin [Mass/Vol] 4.2 g/dL Normal 3.5-5.0 [facility] Comment on above: Performed By: #### C MP, LIPID, T7, TSH #### [facility] [address] [place] [address] Dr. Aubrie Elliott Albumin/Globulin [Mass ratio] 1.4 {ratio} Normal [facility] Comment on above: Performed By: #### C MP, LIPID, T7, TSH #### [facility] [address] [place] [address] Dr. Aubrie Elliott ALP [Catalytic activity/Vol] 59 U/L Normal 38-126 [facility] Comment on above: Performed By: #### C MP, LIPID, T7, TSH #### [facility] [address] [place] [address] Dr. Aubrie Elliott ALT [Catalytic activity/Vol] 22 U/L Normal 9-52 [facility] Comment on above: Performed By: #### C MP, LIPID, T7, TSH #### [facility] [address] [place] [address] Dr. Aubrie Elliott Anion gap [Moles/Vol] 10.1 mmol/L Normal [facility] Comment on above: Performed By: #### C MP, LIPID, T7, TSH #### [facility] [address] [place] [address] Dr. Aubrie Elliott AST [Catalytic activity/Vol] 14 U/L Normal 14-36 [facility] Comment on above: Performed By: #### C MP, LIPID, T7, TSH #### [facility] [address] [place] [address] Dr. Aubrie Elliott Bilirubin [Mass/Vol] 0.5 mg/dL Normal 0.2-1.3 [facility] Comment on above: Performed By: #### C MP, LIPID, T7, TSH #### [facility] [address] [address] [address] Aubrie Elliott Calcium [Mass/Vol] 9.1 mg/dL Normal 8.4-10.2 [facility] Comment on above: Performed By: #### C MP, LIPID, T7, TSH #### [facility] [address] [address] [address] Aubrie Elliott Chloride [Moles/Vol] 103 mmol/L Normal 98-107 [facility] Comment on above: Performed By: #### C MP, LIPID, T7, TSH #### [facility] [address] [address] [address] Aubrie Elliott CO2 [Moles/Vol] 33.1 mmol/L Critically high 22.0-30.0 [facility] Comment on above: Performed By: #### C MP, LIPID, T7, TSH #### [facility] [address] [place] [address] Dr. Aubrie Elliott Creatinine [Mass/Vol] 0.76 mg/dL Normal 0.52-1.04 [facility] Comment on above: Performed By: #### C MP, LIPID, T7, TSH #### [facility] [address] [place] [address] Dr. Aubrie Elliott EGFR-AF WELSH >60 Normal >=60 [facility] Comment on above: Performed By: #### C MP, LIPID, T7, TSH #### [facility] [address] [place] [address] Dr. Aubrie Elliott EGFR-NON AF WELSH >60 Normal >=60 [facility] Comment on above: Performed By: #### C MP, LIPID, T7, TSH #### [facility] [address] [address] [address] Aubrie Elliott Globulin (S) [Mass/Vol] 3.1 g/dL Normal [facility] Comment on above: Performed By: #### C MP, LIPID, T7, TSH #### [facility] [address] [place] [address] Dr. Aubrie Elliott Glucose [Mass/Vol] 107 mg/dL Critically high 74-106 [facility] Comment on above: Performed By: #### C MP, LIPID, T7, TSH #### [facility] [address] [place] [address] Dr. Aubrie Elliott Potassium [Moles/Vol] 4.2 mmol/L Normal 3.4-5.0 [facility] Comment on above: Performed By: #### C MP, LIPID, T7, TSH #### [facility] [address] [place] [address] Dr. Aubrie Elliott Protein [Mass/Vol] 7.3 g/dL Normal 6.1-8.2 [facility] Comment on above: Performed By: #### C MP, LIPID, T7, TSH #### [facility] [address] [place] [address] Dr. Aubrie Elliott Sodium [Moles/Vol] 142 mmol/L Normal 137-145 [facility] Comment on above: Performed By: #### C MP, LIPID, T7, TSH #### [facility] [address] [place] [address] Dr. Aubrie Elliott Urea nitrogen [Mass/Vol] 17.0 mg/dL Normal 7.0-17.0 [facility] Comment on above: Performed By: #### C MP, LIPID, T7, TSH #### [facility] [address] [place] [address] Dr. Aubrie Elliott Urea nitrogen/Creatinin e [Mass ratio] 22.4 mg/mg Normal [facility] Comment on above: Performed By: #### C MP, LIPID, T7, TSH #### [facility] [address] [place] [address] Dr. Aubrie Elliott TSHon 10-09-2021 TSH 1.690 uIU/mL Normal 0.470-4.680 [facility] Comment on above: Performed By: #### C MP, LIPID, T7, TSH #### [facility] [address] [place] [address] Dr. Aubrie Elliott TSH RANGE SEE BELOW Normal [facility] Comment on above: Result Comment: <0.3 4 UIU/ml HYPERTHYROID 0.34-5.60 UIU/ml EUTHYROID >5.60 UIU/ml HYPOTHYROID Performed By: #### C MP, LIPID, T7, TSH #### [facility] [address] [place] [address] Dr. Aubrie Elliott Encounters Encounter Date Encounter Type Care Provider Facility Start: 05-27-2023 End: 05-27-2023 ambulatory Karma Torres Facility:[facility] Start: 05-27-2023 End: 05-27-2023 ambulatory MD Rosa Simpson Work Phone: [facility] Work Phone: Start: 05-27-2023 End: 05-27-2023 Departed Referred MD Rosa Simpson Work Phone: [facility] Work Phone: Start: 03-11-2022 End: 03-12-[address] JSOE L MONTENEGRO Facility:[facility]1 Start: 03-04-2022 End: 03-04-[address] JOSE L MONTENEGRO Facility:[facility] Start: 10-10-2021 Encounter for genera l adult medical examination without abnormal findings DR ROSA SIMPSON [facility] Start: 10-09-2021 End: 10-10-[address] ROSA SIMPSON Facility:[facility] Start: 10-09-2021 End: 10-10-2021 Encounter for general adult medical examination without abnormal findings DR ROSA SIMPSON Facility:[facility]1 Plan of Treatment Date Care Activity Detail Author Start: 05-27-2023 Bacteria identified in Urine by Culture [facility] Payers Date Payer Category Payer Self-pay [id number] 2023 Unknown [id number] 1965 Unknown [id number] 1966 Unknown [id number] 1966 Unknown [id number] 1959 Unknown [id number] Unknown [id number] Worker's Compensation Industrial Self Ins [facility] [place] [id number] Social History Date Type Detail Facility [facility] Work Phone: Start: 1965 Sex Assigned At Female F [facility] Evaluation note Note Date & Type Note Facility Evaluation note No assessment information availa ble [facility] Work Phone: Summary Purpose Family History No Family History Records FoundNo Family History Records Found Advance Directives No Advanced Directives Records Found Advance Directive Response Recorded Date/ Time Advance Directives No November 04 11:01am Additional Source Comments INFORMATION SOURCE (unrecogn ized section and content) DATE CREATED AUTHOR 03/12/2022 [facility] DATE CREATED AUTHOR AUTHOR'S ORGANIZ ATION 07/14/2023 [facility] Care Teams (unrecognized sec tion and content) Team Status: Active Member Role Status Victorina Simpson MD Primary Care Provider Active Team Status: Inactive Member Role Status Victorina Simpson MD Primary Care Provider Active Karma Torres APRN SEPARATIONS SCIENTIST-C Attending Provider Act chelsey Goals (unrecognized section and content) Goals may be documented in a n alternate section FOR RECORDS PERTAINING TO PATIENTS WHO ARE OR HAVE BEEN ENROLLED IN A CHEMICAL DEPENDENCY/SUBSTANCEABUSE PROGRAM, SOME INFORMATION MAY BE OMITTED. This clinical summary was aggregated from multiple sources. Caution should be exercised in using it in the provision of clinical care. This summary normalizes information from multiple sources, and as a consequence, information in this document may materially change the coding, format and clinical context of patient data. In addition, data may be omitted in some cases. CLINICAL DECISIONS SHOULD BE BASED ON THE PRIMARY CLINICAL RECORDS. [facility]. provides no warranty or guarantee of the accuracy or completeness of information in this document.
[2025-04-27 06:55] LABS: Hematocrit 38.8 % (36.0-48.0); Hemoglobin 13.1 g/dL (12.0-16.0); Immature Granulocytes Abs Auto 0.00 10^3/uL (0.00-0.03); Immature Granulocytes Pct Auto 0.0 % (0.0-0.5); Lymphocytes Absolute Auto 1.9 10^3/uL (1.2-3.8); Mean Corpuscular HGB Conc 33.8 g/dL (29.9-35.2); Mean Corpuscular Hemoglobin 32.6 pg (26.7-34.0); Mean Corpuscular Volume 96.5 fL (81.0-99.0); Platelet Count 201 10^3/uL (150-450); Red Blood Count 4.02 10^6/uL (4.20-5.40); White Blood Count 5.1 10^3/uL (4.0-11.0)
[2025-04-27 07:29] LABS: Iron 89.0 ug/dL (50.0-170.0)
[2025-04-27 07:43] LABS: Alanine Aminotransferase 24 U/L (14-59); Albumin Globulin Ratio 1.6; Albumin Level 4.3 g/dL (3.4-5.0); Alkaline Phosphatase 57 U/L (46-116); Anion Gap 12.3; Aspartate Amino Transferase 17 U/L (15-37); Blood Urea Nitrogen 20.0 mg/dL (7.0-18.0); Calcium 9.1 mg/dL (8.5-10.1); Carbon Dioxide 29.9 mmol/L (21.0-32.0); Chloride 106 mmol/L (98-107); Cholesterol 199 mg/dL (<=200); Estimated GFR (African America >60 (>=60 mL/min/1.73m^2); Estimated GFR (Non-African Ame >60 (>=60 mL/min/1.73m^2); Free T3 2.46 pg/mL (2.18-3.98); Globulin 2.7 g/dL; Glucose 121 mg/dL (74-106); HDL Cholesterol 85 mg/dL (40-60); Potassium 4.2 mmol/L (3.5-5.1); Sodium 144 mmol/L (136-145); Thyroid Stimulating Hormone 1.711 uIU/mL (0.358-3.740); Total Protein 7.0 g/dL (6.4-8.2); Triglycerides 64 mg/dL (<=150); VLDL CHOLESTEROL 12.8 mg/dL
== END 2025-04-27 06:36 | disposition home or self-care (01) ==
PROVIDERS: PCP Family Medicine; Visit Provider Nurse Practitioner Family
DX: Z00.00 Encounter for general adult medical examination without abnormal findings (principal)
CPT/HCPCS: 36415; 80053; 80061; 82306; 83036; 83525; 83540; 84436; 84443; 84481; 85025

== ENCOUNTER 2025-05-09 09:06 | Outpatient (OUT) | payer OTHER, SELFPAY ==
--- NOTE | 2025-05-09 09:09 | MM_ITS ---
Patient Name: STEPHON LOWE MR#: [id number] : 1965 Exam Date: 05/09/2025 Ordering Doctor: DR ROSA SIMPSON . RADIOLOGY REPORT PROCEDURE: MM TOMOSYNTHESIS SCREENING BI COMPARISON: MM TOMOSYNTHESIS SCREENING BI, 04/29/2023. MG MAMM SCREEN 3D LUNA CAD, 03/11/2022. MG MAMM SCREEN LUNA W CAD, 03/21/2019. MG MAMM LUNA SCRN W CAD DIG, 05/16/2013. INDICATIONS: Screening Calculator Name NCI Breast Cancer Risk Assessment Tool 5 Year Breast Cancer Risk 1.40% Lifetime Breast Cancer Risk 7.60% Personal Breast Cancer No Personal Ovarian Cancer No Treatments None Family Cancers Grandmother-paternal with breast cancer at age 60; Grandmother-maternal with bone cancer at age 65; Grandfather-paternal with lung cancer at age 55. LOCATION: [facility] BREAST COMPOSITION: The breasts are extremely dense, which lowers the sensitivity of mammography. FINDINGS: RIGHT BREAST: No significant suspicious finding. Benign-appearing calcifications are present. LEFT BREAST: No significant suspicious finding. Benign-appearing calcifications are present. DIAGNOSTIC CATEGORY 2--BENIGN FINDING. NO CHANGE FROM COMPARISON. RECOMMENDATIONS: ROUTINE MAMMOGRAM AND CLINICAL EVALUATION IN 12 MONTHS. Dictated by: Hayden Wei MD on 05/09/2025 at 15:46 Approved by: Hayden Wei MD on 05/09/2025 at 15:49
--- OUTSIDE RECORDS SUMMARY | 2025-05-09 09:09 | XMS_ITS | CCD ---
Author Organization [facility] Care Team Providers Care Restaurant Greeter Name Role Phone DR JOSE L MONTENEGRO [...] Unavailable MD Rosa Simpson Primary Care Provider [phone] DANNIE Torres Attending Provider Karma Torres Attending Unavailable Karma Torres Admitting [...] Cx Nom (U) ORGANISM: Escherichia coli (O:ESCCOL) [place] Count >100,000 Aerobic PERLITA Charge (NMIC56) --- [...] RESISTANT TO ALL B-LACTAM DRUGS. PERFORMED BY: [address] [place] [address] PATHOLOGIST WOOD SASH AND FRAME CARPENTER JEIMY CANNON M.D. [facility] Comment on above: Performed By: #### C UU #### [place] [id number] [facility] [[email or web address]] MG MAMM SCREEN 3D LUNA CADon 03-11-2022 MG MAMM SCREEN 3D LUNA CAD Patient: STEPHON LOWE Exam Date: 03/11/2022 : 1965 Gender:F Ordering : DR JOSE L MONTENEGRO . Admission #: [id number] Family : Order #: [id number] CLICK HERE TO VIEW EXAM RADIOLOGY REPORT [...] lung cancer at age 56. LOCATION: [facility] BREAST COMPOSITION: Extremely dense, which lowers the [...] Pineda MD on 03/11/2022 at 07:57 Normal [facility] XR DEXA BONE DENSITYon 03-11 XR DEXA BONE DENSITY DEXA Bone Density Study CLINICAL: Evaluate bone mineral density. Postmenopausal COMPARISON: None FINDINGS: The bone density study was assessed by dual-energy x-ray absorptiometry with the [employer] scanner. The test results are expressed in [...] by: ELLE ROMERO Date: 2022-03-11 08:48 Normal [facility] PAP ACOG PANEL 2: 30 to 65on 03-10-2022 . . Normal [facility] Comment on above: Result Comment: Perf ormed at: WB Performed By: #### [id number] #### [facility] [address] [address] [address] Aubrie Elliott Age Gdln ACOG Testing 30-65 Normal [facility] Comment on above: Performed By: #### [id number] #### [facility] [address] [address] [address] Aubrie Elliott DIAGNOSIS: Comment Normal [facility] Comment on above: Result Comment: NEGA TIVE FOR INTRAEPITHELIAL LESION OR MALIGNANCY. Performed at: WB Performed By: #### 4 [id number] #### [facility] [address] [address] [address] Aubrie Elliott HPV Aptima Positive Abnormal Negative [facility] Comment on above: Result Comment: This nucleic acid amplification test detects fourteen high-risk HPV types (16,18,31,33,35,39,45,51,52,56,58,59,66,68) without differentiation. Performed at: =G Performed By: #### [id number] #### [facility] [address] [address] [address] Aubrie Elliott HPV Genotype 16 Positive Abnormal Negative [facility] Comment on above: Result Comment: Perf ormed at: =G Performed By: #### [id number] #### [facility] [address] [address] [address] Aubrie Elliott HPV Genotype 18,45 Negative Normal Negative [facility] Comment on above: Result Comment: Perf ormed at: =G Performed By: #### [id number] #### [facility] [address] [address] [address] Aubrie Elliott Methodology: Comment Normal [facility] Comment on above: Result Comment: This liquid based ThinPrep(R) pap test was screened with the use of an image guided system. Performed at: WB Performed By: #### [id number] #### [facility] [address] [place] [address] Dr. Aubrie Elliott Note: Comment Normal [facility] Comment on above: Result Comment: The Pap smear is a screening test designed to aid in the detection of premalignant and malignant conditions of the uterine cervix. It is not a diagnostic procedure and should not be used as the sole means of detecting cervical cancer. Both false-positive and false-negative reports do occur. . Performed at: WB Performed By: #### [id number] #### [facility] [address] [place] [address] Dr. Aubrie Elliott Performed by: Comment Normal [facility] Comment on above: Result Comment: Emil Bell, Admin Asst (ASCP) Performed at: WB Performed By: #### [id number] #### [facility] [address] [place] [address] Dr. Aubrie Elliott Specimen adequacy: Comment Normal [facility] Comment on above: Result Comment: Sati sfactory for evaluation. Endocervical and/or squamous metaplastic cells (endocervical component) are present. Performed at: WB Performed By: #### [id number] #### [facility] [address] [place] [address] Dr. Aubrie Elliott CBC AUTO DIFFon 10-09-2021 BASO # 0.0 103/ul Normal 0.0-0.1 [facility] Comment on above: Performed By: #### C BC #### [facility] [address] [place] [address] Dr. Aubrie Elliott Basophils/100 WBC (Bld) 0.4 % Normal 0.2-2.0 [facility] Comment on above: Performed By: #### C BC #### [facility] [address] [place] [address] Dr. Aubrie Elliott EO # 0.1 103/ul Normal 0.0-0.7 [facility] Comment on above: Performed By: #### C BC #### [facility] [address] [place] [address] Dr. Aubrie Elliott Eosinophils/100 WBC (Bld) 1.1 % Normal 0.9-7.0 [facility] Comment on above: Performed By: #### C BC #### [facility] [address] [place] [address] Dr. Aubrie Elliott Erythrocyte distribution width (RBC) [Ratio] 11.8 % Normal 11.0-15.0 [facility] Comment on above: Performed By: #### C BC #### [facility] [address] [place] [address] Dr. Aubrie Elliott Hematocrit (Bld) [Volume fraction] 41.2 % Normal 36.0-48.0 [facility] Comment on above: Performed By: #### C BC #### [facility] [address] [place] [address] Dr. Aubrie Elliott Hemoglobin (Bld) [Mass/Vol] 13.7 g/dL Normal 12.0-16.0 [facility] Comment on above: Performed By: #### C BC #### [facility] [address] [place] [address] Dr. Aubrie Elliott IG # 0.01 10e3/ul Normal 0.00-0.03 [facility] Comment on above: Performed By: #### C BC #### [facility] [address] [place] [address] Dr. Aubrie Elliott IG % 0.2 % Normal 0.0-0.5 [facility] Comment on above: Performed By: #### C BC #### [facility] [address] [place] [address] Dr. Aubrie Elliott LYMPH # 1.9 103/ul Normal 1.2-3.8 [facility] Comment on above: Performed By: #### C BC #### [facility] [address] [place] [address] Dr. Aubrie Elliott Lymphocytes/100 WBC (Bld) 35.0 % Normal 20.5-60.0 [facility] Comment on above: Performed By: #### C BC #### [facility] [address] [place] [address] Dr. Aubrie Elliott MANUAL DIFF REQ NO Normal [facility] Comment on above: Performed By: #### C BC #### [facility] [address] [place] [address] Dr. Aubrie Elliott MCH (RBC) [Entitic mass] 32.2 pg Normal 26.7-34.0 [facility] Comment on above: Performed By: #### C BC #### [facility] [address] [place] [address] Dr. Aubrie Elliott MCHC (RBC) [Mass/Vol] 33.3 g/dL Normal 29.9-35.2 [facility] Comment on above: Performed By: #### C BC #### [facility] [address] [place] [address] Dr. Aubrie Elliott MCV (RBC) [Entitic vol] 96.9 fL Normal 81.0-99.0 [facility] Comment on above: Performed By: #### C BC #### [facility] [address] [place] [address] Dr. Aubrie Elliott MONO # 0.4 103/ul Normal 0.3-0.8 [facility] Comment on above: Performed By: #### C BC #### [facility] [address] [place] [address] Dr. Aubrie Elliott Monocytes/100 WBC (Bld) 7.8 % Normal 1.7-12.0 [facility] Comment on above: Performed By: #### C BC #### [facility] [address] [place] [address] Dr. Aubrie Elliott NEUT # 3.0 103/ul Normal 1.4-6.5 [facility] Comment on above: Performed By: #### C BC #### [facility] [address] [place] [address] Dr. Aubrie Elliott Neutrophils/100 WBC (Bld) 55.5 % Normal 43.0-75.0 [facility] Comment on above: Performed By: #### C BC #### [facility] [address] [place] [address] Dr. Aubrie Elliott Platelet mean volume (Bld) [Entitic vol] 8.9 fL Critically low 9.5-13.5 [facility] Comment on above: Performed By: #### C BC #### [facility] [address] [address] [address] Aubrie Elliott PLT 232 103/ul Normal 150-450 [facility] Comment on above: Performed By: #### C BC #### [facility] [address] [address] [address] Aubrie Elliott RBC 4.25 106/ul Normal 4.20-5.40 [facility] Comment on above: Performed By: #### C BC #### [facility] [address] [address] [address] Aubrie Elliott WBC 5.4 103/ul Normal 4.0-11.0 [facility] Comment on above: Performed By: #### C BC #### [facility] [address] [place] [address] Dr. Aubrie Elliott FREE THYROXINE INDEX T7on FTI 2.45 Normal [facility] Comment on above: Performed By: #### C MP, LIPID, T7, TSH #### [facility] [address] [place] [address] Dr. Aubrie Elliott T3U 36.0 % Normal 23.5-40.5 [facility] Comment on above: Performed By: #### C MP, LIPID, T7, TSH #### [facility] [address] [place] [address] Dr. Aubrie Elliott T4 [Mass/Vol] 6.80 ug/dL Normal 5.53-11.00 [facility] Comment on above: Performed By: #### C MP, LIPID, T7, TSH #### [facility] [address] [place] [address] Dr. Aubrie Elliott LIPID PROFILEon 10-09-2021 CHOL-HDL RATIO NORM SEE BELOW Normal [facility] Comment on above: Result Comment: 3.3 - 4.4 LOW RISK 4.4 - 7.1 AVERAGE RISK 7.1 - 11.0 MODERATE RISK >11.0 HIGH RISK Performed By: #### C MP, LIPID, T7, TSH #### [facility] [address] [place] [address] Dr. Aubrie Elliott Cholesterol [Mass/Vol] 255 mg/dL Critically high <=200 [facility] Comment on above: Performed By: #### C MP, LIPID, T7, TSH #### [facility] [address] [address] [address] Aubrie Elliott Cholesterol in HDL [Mass/Vol] 69 mg/dL Normal [facility] Comment on above: Performed By: #### C MP, LIPID, T7, TSH #### [facility] [address] [address] [address] Aubrie Elliott Cholesterol in LDL [Mass/Vol] 163.2 mg/dL Normal [facility] Comment on above: Performed By: #### C MP, LIPID, T7, TSH #### [facility] [address] [address] [address] Aubrie Elliott Cholesterol.total/ Cholesterol in HDL [Mass ratio] 3.7 {ratio} Normal [facility] Comment on above: Performed By: #### C MP, LIPID, T7, TSH #### [facility] [address] [address] [address] Aubrie Elliott HDL NORMAL > or = 60 mg/dl - LO W CARDIOVASCULAR RISK <40 mg/dl - HIGH CARDIOVASCULAR RISK Normal [facility] Comment on above: Performed By: #### C MP, LIPID, T7, TSH #### [facility] [address] [address] [address] Aubrie Elliott LDL CALC NORMAL SEE BELOW Normal [facility] Comment on above: Result Comment: <100 mg/dl OPTIMAL 100 - 129 mg/dl NEAR OR ABOVE OPTIMAL 130 - 159 mg/dl BORDERLINE HIGH 160 - 189 mg/dl HIGH >190 mg/dl VERY HIGH Performed By: #### C MP, LIPID, T7, TSH #### [facility] [address] [address] [address] Aubrie Elliott Triglyceride [Mass/Vol] 114 mg/dL Normal <=150 [facility] Comment on above: Performed By: #### C MP, LIPID, T7, TSH #### [facility] [address] [address] [address] Aubrie Elliott VLDL CALC 22.8 mg/dL Normal [facility] Comment on above: Performed By: #### C MP, LIPID, T7, TSH #### [facility] [address] [place] [address] Dr. Aubrie Elliott PROF 14(COMP METB)on 022 Albumin [Mass/Vol] 4.2 g/dL Normal 3.5-5.0 [facility] Comment on above: Performed By: #### C MP, LIPID, T7, TSH #### [facility] [address] [place] [address] Dr. Aubrie Elliott Albumin/Globulin [Mass ratio] 1.4 {ratio} Normal [facility] Comment on above: Performed By: #### C MP, LIPID, T7, TSH #### [facility] [address] [place] [address] Dr. Aubrie Elliott ALP [Catalytic activity/Vol] 59 U/L Normal 38-126 [facility] Comment on above: Performed By: #### C MP, LIPID, T7, TSH #### [facility] [address] [place] [address] Dr. Aubrie Elliott ALT [Catalytic activity/Vol] 22 U/L Normal 9-52 [facility] Comment on above: Performed By: #### C MP, LIPID, T7, TSH #### [facility] [address] [place] [address] Dr. Aubrie Elliott Anion gap [Moles/Vol] 10.1 mmol/L Normal [facility] Comment on above: Performed By: #### C MP, LIPID, T7, TSH #### [facility] [address] [place] [address] Dr. Aubrie Elliott AST [Catalytic activity/Vol] 14 U/L Normal 14-36 [facility] Comment on above: Performed By: #### C MP, LIPID, T7, TSH #### [facility] [address] [place] [address] Dr. Aubrie Elliott Bilirubin [Mass/Vol] 0.5 mg/dL Normal 0.2-1.3 [facility] Comment on above: Performed By: #### C MP, LIPID, T7, TSH #### [facility] [address] [address] [address] Aubrie Elliott Calcium [Mass/Vol] 9.1 mg/dL Normal 8.4-10.2 [facility] Comment on above: Performed By: #### C MP, LIPID, T7, TSH #### [facility] [address] [address] [address] Aubrie Elliott Chloride [Moles/Vol] 103 mmol/L Normal 98-107 [facility] Comment on above: Performed By: #### C MP, LIPID, T7, TSH #### [facility] [address] [address] [address] Aubrie Elliott CO2 [Moles/Vol] 33.1 mmol/L Critically high 22.0-30.0 [facility] Comment on above: Performed By: #### C MP, LIPID, T7, TSH #### [facility] [address] [place] [address] Dr. Aubrie Elliott Creatinine [Mass/Vol] 0.76 mg/dL Normal 0.52-1.04 [facility] Comment on above: Performed By: #### C MP, LIPID, T7, TSH #### [facility] [address] [place] [address] Dr. Aubrie Elliott EGFR-AF CITIZEN [place] >60 Normal >=60 [facility] Comment on above: Performed By: #### C MP, LIPID, T7, TSH #### [facility] [address] [place] [address] Dr. Aubrie Elliott EGFR-NON AF CITIZEN OF [place] >60 Normal >=60 [facility] Comment on above: Performed By: #### C MP, LIPID, T7, TSH #### [facility] [address] [address] [address] Aubrie Elliott Globulin (S) [Mass/Vol] 3.1 g/dL Normal [facility] Comment on above: Performed By: #### C MP, LIPID, T7, TSH #### [facility] [address] [place] [address] Dr. Aubrie Elliott Glucose [Mass/Vol] 107 mg/dL Critically high 74-106 [facility] Comment on above: Performed By: #### C MP, LIPID, T7, TSH #### [facility] [address] [place] [address] Dr. Aubrie Elliott Potassium [Moles/Vol] 4.2 mmol/L Normal 3.4-5.0 [facility] Comment on above: Performed By: #### C MP, LIPID, T7, TSH #### [facility] [address] [place] [address] Dr. Aubrie Elliott Protein [Mass/Vol] 7.3 g/dL Normal 6.1-8.2 [facility] Comment on above: Performed By: #### C MP, LIPID, T7, TSH #### [facility] [address] [place] [address] Dr. Aubrie Elliott Sodium [Moles/Vol] 142 mmol/L Normal 137-145 [facility] Comment on above: Performed By: #### C MP, LIPID, T7, TSH #### [facility] [address] [place] [address] Dr. Aubrie Elliott Urea nitrogen [Mass/Vol] 17.0 mg/dL Normal 7.0-17.0 [facility] Comment on above: Performed By: #### C MP, LIPID, T7, TSH #### [facility] [address] [place] [address] Dr. Aubrie Elliott Urea nitrogen/Creatinin e [Mass ratio] 22.4 mg/mg Normal [facility] Comment on above: Performed By: #### C MP, LIPID, T7, TSH #### [facility] [address] [place] [address] Dr. Aubrie Elliott TSHon 10-09-2021 TSH 1.690 uIU/mL Normal 0.470-4.680 [facility] Comment on above: Performed By: #### C MP, LIPID, T7, TSH #### [facility] [address] [place] [address] Dr. Aubrie Elliott TSH RANGE SEE BELOW Normal [facility] Comment on above: Result Comment: <0.3 4 UIU/ml HYPERTHYROID 0.34-5.60 UIU/ml EUTHYROID >5.60 UIU/ml HYPOTHYROID Performed By: #### C MP, LIPID, T7, TSH #### [facility] [address] [place] [address] Dr. Aubrie Elliott Encounters Encounter Date Encounter Type Care Provider Facility Start: 05-27-2023 End: 05-27-2023 ambulatory Karma Torres Facility:[facility] Start: 05-27-2023 End: 05-27-2023 ambulatory MD Rosa Simpson Work Phone: [facility] Work Phone: Start: 05-27-2023 End: 05-27-2023 Departed Referred MD Rosa Simpson Work Phone: [facility] Work Phone: Start: 03-11-2022 End: 03-12-[address] JOSE L MONTENEGRO Facility:[facility] Start: 03-04-2022 End: 03-04-[address] JOSE L MONTENEGRO Facility:[facility] Start: 10-10-2021 Encounter for genera l adult medical examination without abnormal findings DR ROSA SIMPSON [facility] Start: 10-09-2021 End: 10-10-[address] ROSA SIMPSON Facility:[facility] Start: 10-09-2021 End: 10-10-2021 Encounter for general adult medical examination without abnormal findings DR ROSA SIMPSON Facility:[facility]1 Plan of Treatment Date Care Activity Detail Author Start: 05-27-2023 Bacteria identified in Urine by Culture [facility] Payers Date Payer Category Payer Self-pay [id number] 2023 Unknown [id number] 1965 Unknown [id number] 1965 Unknown [id number] 1965 Unknown [id number] 93 1958 Unknown [id number] Unknown [id number] 31 Worker's Compensation Industrial Self Ins [facility] [id number] Social History Date Type Detail Facility [facility] Work Phone: Start: 1965 Sex Assigned At Female F [facility] Evaluation note Note Date & Type Note Facility Evaluation note No assessment information availa ble [facility] Work Phone: Summary Purpose Family History No Family History Records FoundNo Family History Records Found Advance Directives No Advanced Directives Records Found Advance Directive Response Recorded Date/ Time Advance Directives No November 04 11:01am Additional Source Comments INFORMATION SOURCE (unrecogn ized section and content) DATE CREATED AUTHOR 03/12/2022 [facility] DATE CREATED AUTHOR AUTHOR'S ORGANIZ ATION 07/14/2023 [facility] Care Teams (unrecognized sec tion and content) Team Status: Active Member Role Status Victorina Simpson MD Primary Care Provider Active Team Status: Inactive Member Role Status Victorina Simpson MD Primary Care Provider Active Karma Torres APRN LOG COOKER-C Attending Provider Act chelsey Goals (unrecognized section [...] BE BASED ON THE PRIMARY CLINICAL RECORDS. [facility] [employer] [facility]. provides no warranty or guarantee of the accuracy or completeness of information in this document.
== END 2025-05-09 09:07 | disposition home or self-care (01) ==
LOC: MAMMO 09:06
PROVIDERS: PCP Family Medicine; Visit Provider Family Medicine
DX: Z12.31 Encounter for screening mammogram for malignant neoplasm of breast (principal); Z80.3 Family history of malignant neoplasm of breast; Z80.1 Family history of malignant neoplasm of trachea, bronchus and lung; Z80.8 Family history of malignant neoplasm of other organs or systems
CPT/HCPCS: 77063; 77067